=== PATIENT | female | born 1955 | race Caucasian/White ===

== ENCOUNTER → 2023-06-22 | Outpatient (CLI) | payer MEDICARE, OTHER, SELFPAY ==
[2023-06-22 15:28] LABS: Absolute Lymphocyte Count 1.61 X10^3/uL (0.83-4.51); Absolute Neutrophil Count 5.5 X10^3/uL (2.0-7.7); Basophil# 0.07 X10^3/uL; Basophil% 0.9 % (0-1); Eosinophil# 0.32 X10^3/uL; Hematocrit 24.2 % (37-47); Hemoglobin 6.8 g/dL (12.0-15.0); Lymphocyte # 1.61 X10^3/ul (0.83-4.51); Lymphocyte % 19.9 % (19-41); Mean Corp Hgb Conc 28.1 g/dL (32-36); Mean Corpuscular Hgb 27.5 pg (27.0-32.0); Mean Platelet Vol. 11.9 fl (6.2-12.0); Monocyte# 0.52 X10^3/uL; Monocyte% 6.4 % (0-10); NRBC Flagged by Analyzer 0 % (0-5); Neutrophil # 5.52 X10^3/uL (2.7-7.7); Neutrophil % 68.2 % (47-70); Platelet Count 218 K/mm3 (150-450); RBC Distribution Width CV 17.2 % (11.6-14.6); RBC Distribution Width SD 60.4 fl (35.1-43.9); Red Blood Count 2.47 M/mm3 (4.2-5.4); White Blood Count 8.1 K/mm3 (4.4-11.0)
[2023-06-22 16:00] LABS: Ferritin 84 ng/mL (8-252); Iron 29 ug/dL (50-170)
[2023-06-22 16:07] LABS: Vitamin B12 347 pg/mL (211-911); Vitamin D,25 Hydroxy 61.3 ng/mL
[2023-06-23 08:29] LABS: PTHIN 117.2 pg/mL (18.4-80.1)
== END | disposition home or self-care (01) ==
LOC: BFHLAB 13:10
PROVIDERS: PCP Family Medicine; Referring Provider Family Medicine; Visit Provider Family Medicine
DX: N18.4 Chronic kidney disease, stage 4 (severe) (principal); D63.1 Anemia in chronic kidney disease
CPT/HCPCS: 36415; 82306; 82607; 82728; 83540; 83970; 85025

== ENCOUNTER 2023-08-03 13:51 | Outpatient (CLI) | payer MEDICARE, OTHER, SELFPAY ==
[2023-08-03 14:13] VITALS: BP 139/76; PULSE 98; RESP 18; TEMP 36.6; O2SAT 98; BMI 51.6
[2023-08-03] MEDS: Sodium Ferric Gluconat/Sucrose 250 MG in 0.9% Normal Saline (250mL Bag) 250 ML 135 MG IV (14:38)
[2023-08-03] MEDS: 0.9% NaCl IVPB Med Flush (250 mL) 15 ML IV (14:38)
[2023-08-03] MEDS: 0.9% NaCl Peripheral Flush Adult/Peds IV (14:51)
[2023-08-03 16:36] VITALS: BP 137/65; PULSE 89; RESP 16; TEMP 36.4; O2SAT 100
== END 2023-08-03 13:52 | disposition home or self-care (01) ==
LOC: MEDOUTP 13:52
PROVIDERS: PCP Family Medicine; Referring Provider Family Medicine; Visit Provider Family Medicine
DX: D64.9 Anemia, unspecified (principal)
CPT/HCPCS: 96365; 96366; J7050; A4216; J2916

== ENCOUNTER 2023-08-17 12:39 | Outpatient (CLI) | payer MEDICARE, OTHER, SELFPAY ==
[2023-08-17 13:01] VITALS: BP 143/66; PULSE 92; RESP 18; TEMP 36.2; O2SAT 99
[2023-08-17] MEDS: 0.9% NaCl Peripheral Flush Adult/Peds IV (13:34)
[2023-08-17] MEDS: 0.9% NaCl IVPB Med Flush (250 mL) 15 ML IV (13:34)
[2023-08-17] MEDS: Sodium Ferric Gluconat/Sucrose 250 MG in 0.9% Normal Saline (250mL Bag) 250 ML 135 MG IV (13:43)
[2023-08-17 16:05] VITALS: BP 121/58; PULSE 90; RESP 16; TEMP 36.3; O2SAT 100
== END 2023-08-17 12:40 | disposition home or self-care (01) ==
LOC: MEDOUTP 12:40
PROVIDERS: PCP Family Medicine; Referring Provider Family Medicine; Visit Provider Family Medicine
DX: D64.9 Anemia, unspecified (principal)
CPT/HCPCS: 96365; 96366; J7050; A4216; J2916

== ENCOUNTER → 2023-09-22 | Outpatient (CLI) | payer MEDICARE, OTHER, SELFPAY ==
[2023-09-22 17:47] LABS: Absolute Lymphocyte Count 1.93 X10^3/uL (0.83-4.51); Absolute Neutrophil Count 7.3 X10^3/uL (2.0-7.7); Eosinophil# 0.21 X10^3/uL; Hematocrit 28.4 % (37-47); Lymphocyte # 1.93 X10^3/ul (0.83-4.51); Lymphocyte % 18.5 % (19-41); Mean Corp Hgb Conc 28.2 g/dL (32-36); Mean Corpuscular Hgb 26.1 pg (27.0-32.0); Mean Corpuscular Volume 92.5 fL (81-99); Mean Platelet Vol. 11.6 fl (6.2-12.0); Monocyte# 0.81 X10^3/uL; Monocyte% 7.7 % (0-10); NRBC Flagged by Analyzer 0 % (0-5); Neutrophil # 7.33 X10^3/uL (2.7-7.7); POSITIVE MORPHOLOGY YES; Platelet Count 230 K/mm3 (150-450); RBC Distribution Width CV 20.7 % (11.6-14.6); RBC Distribution Width SD 69.5 fl (35.1-43.9); Red Blood Count 3.07 M/mm3 (4.2-5.4); White Blood Count 10.5 K/mm3 (4.4-11.0)
[2023-09-22 17:50] LABS: Differential Indicated SCAN CRITERIA MET
[2023-09-22 18:03] LABS: Differential Comment SCANNED
[2023-09-22 18:15] LABS: Hemoglobin A1c 5.9 % (3.8-5.6)
[2023-09-22 18:32] LABS: ALB/GLOB Ratio 0.8 RATIO (0.9-2.4); AST(SGOT) 15 U/L (15-37); Alanine Aminotransfer ALT/SGPT 18 U/L (13-56); Albumin, Serum 3.1 g/dL (3.2-5.0); Alkaline Phosphatase 174 U/L (45-117); Anion Gap 1 (5-15); BUN 32 mg/dL (7-18); BUN/Creat Ratio 15.8 RATIO (10-20); Calcium,Total 9.2 mg/dL (8.5-10.1); Chloride 99 mmol/L (98-107); Cholesterol 196 mg/dL (200); Creatinine, Serum 2.02 mg/dL (0.55-1.02); EST Glomerular Filtration Rate 26 mL/min (>60); Est Glom Filt Rate - Afr Amer 32 mL/min (>60); Ferritin 14 ng/mL (8-252); Globulin 3.8 g/dL (2.2-4.2); Glucose 68 mg/dL (74-106); High Density Lipoprotein 50 mg/dL; Iron 20 ug/dL (50-170); Potassium 4.2 mmol/L (3.5-5.1); Protein, Total 6.9 g/dL (6.4-8.2); Sodium Level 138 mmol/L (136-145); Triglycerides 144 mg/dL; Very Low Density Lipoprotein 29 mg/dL (5-40)
[2023-09-22 18:39] LABS: Vitamin B12 376 pg/mL (211-911)
[2023-09-30 16:36] LABS: Microalbumin,Random Urine 70.8 mg/L (NO RANGE EST.); Microalbumin:Creatinine Ratio 77.1 mg/g CRE (<30 mg/g CRE)
== END | disposition home or self-care (01) ==
LOC: BFHLAB 15:11
PROVIDERS: PCP Family Medicine; Referring Provider Internal Medicine Endocrinology, Diabetes & Metabolism; Visit Provider Family Medicine
DX: E11.42 Type 2 diabetes mellitus with diabetic polyneuropathy (principal); E78.2 Mixed hyperlipidemia; D64.9 Anemia, unspecified
CPT/HCPCS: 36415; 80053; 80061; 82043; 82570; 82607; 82728; 83036; 83540; 85025

== ENCOUNTER 2024-05-21 14:15 | Outpatient (RCR) | payer MEDICARE, OTHER, SELFPAY ==
[2024-05-03 14:01] VITALS: BP 148/59; PULSE 91; RESP 18; TEMP 36.3; BMI 47.8
[2024-05-07 13:54] VITALS: BP 133/60; PULSE 97; RESP 16; TEMP 36.6; BMI 47.8
[2024-05-14 15:12] VITALS: BP 147/71; PULSE 88; RESP 20; TEMP 36.6; BMI 47.8
[2024-05-21 14:09] VITALS: BP 155/77; PULSE 155; RESP 15; TEMP 36.2; BMI 47.8
== END 2024-05-21 23:59 | disposition home or self-care (01) ==
LOC: WC 14:15
PROVIDERS: PCP Family Medicine; Referring Provider Family Medicine; Visit Provider Physician Assistant
DX: L89.154 Pressure ulcer of sacral region, stage 4 (principal); N18.4 Chronic kidney disease, stage 4 (severe); J96.10 Chronic respiratory failure, unspecified whether with hypoxia or hypercapnia; I50.22 Chronic systolic (congestive) heart failure; I13.0 Hypertensive heart and chronic kidney disease with heart failure and stage 1 through stage 4 chronic kidney disease, or unspecified chronic kidney disease; I42.9 Cardiomyopathy, unspecified; E66.01 Morbid (severe) obesity due to excess calories; Z68.42 Body mass index [BMI] 45.0-49.9, adult; Z79.4 Long term (current) use of insulin; E11.22 Type 2 diabetes mellitus with diabetic chronic kidney disease; E11.40 Type 2 diabetes mellitus with diabetic neuropathy, unspecified; E78.5 Hyperlipidemia, unspecified; G47.33 Obstructive sleep apnea (adult) (pediatric); Z79.51 Long term (current) use of inhaled steroids; Z79.82 Long term (current) use of aspirin; Z99.81 Dependence on supplemental oxygen; J45.909 Unspecified asthma, uncomplicated
CPT/HCPCS: 11043; 11044; 99214; G0463

== ENCOUNTER 2024-07-30 13:57 | Outpatient (RCR) | payer MEDICARE, OTHER, SELFPAY ==
[2024-05-22 00:33] VITALS: BP 155/77; PULSE 155; RESP 15; TEMP 36.2; BMI 47.8
--- NOTE | 2024-05-22 15:16 | WC ---
Called patient to let her know that Dr Johnson reviewed her lab work and was concerned about her albumin levels and would like a dietary consult to get her prepped for flap. I left her a voicemail regarding this and a referral will be sent.
--- NOTE | 2024-06-12 14:15 | WC ---
Spoke to patient today regarding the update on her health. She was recently hospitalized for COVID and other illnesses and now a resident at the [facility]. She isn't able to make her wound center appts right now due to cost of transportation. Asked if we could let the nurses know on her dressing care. Called the [facility] and obtained the fax number and faxed Scarlett the recent wound orders and progress note. Also sent a backline message to Dr Johnson letting him know that she will probably be in NH for another few weeks.
[2024-07-30 14:09] VITALS: BP 108/65; PULSE 88; RESP 20; TEMP 36.6; BMI 42.5
--- NOTE | 2024-07-30 17:15 | PCM.WC.PN ---
History of Present Illness Date of Service: 07/30/24 Chief Complaint: Sacral ulcer History of Wound: Mitra Palacios is a 68-year-old female who presents to the wound center today for evaluation and management of a sacral decubitus ulcer. She is accompanied to her appointment today by her who helps with wound care. She reports that this decubitus ulcer has been present to some degree for 12 years. She has been on IV antibiotics for infection of this wound in 2012. She reports a history of surgical debridement and intervention in 2016 after which it improved but still had a small opening. Then more recently she states the opening has enlarged again. She was recently seen at [facility] in [place] for UTI with sepsis and this ulcer was evaluated at that time as well. Per review of the available reports, it appears they did an MRI bone scan which suggested chronic sacral osteomyelitis. She was discharged with home health care through [facility] and they have been packing the wound with Dakin's soaked Nu Gauze and covering with a Mepilex dressing. However, often after home health leaves they will remove the packing as the patient reports it is painful to sit with the packing in place and also it seems to fall out onto the Mepilex anyway. They do report a significant amount of drainage from the wound, but denies any appearance of stool or significant foul odor. She does spend essentially all of her time sitting in either wheelchair or a recliner. She reports that she cannot stand for more than a minute at a time due to knee pain. Likewise, she is able to ambulate very short distances to the bathroom but otherwise reports this is extremely limited due to knee pain as well. She does have a cushion for her wheelchair and reportedly her recliner as well. She does have a hospital bed but does not use this that she says the mattress is too hard and uncomfortable so she sleeps in her recliner. She is overweight with a BMI of 47.8; however, she reports she has intentionally lost about 100 pounds over the last 3 years. She is an insulin-dependent diabetic. She reports since her discharge from hospital her sugars have been on the lower side, but is unsure of her most recent A1c. She does not smoke. Her medical history is otherwise significant aortic stenosis status post TAVR March 2024, cardiomyopathy with HFrEF, type 2 diabetes with associated neuropathy, chronic kidney disease stage IV, hypertension, hyperlipidemia, FAISAL, chronic respiratory failure (on supplemental O2 4 L via NC). She takes daily aspirin but no other blood thinners. Current encounter, 07 May 2024: Patient here today as a referral from Dr. Amato. She reports that during her recent hospitalization for her TAVR procedure, she had her wound opened up more (sacral wound). She believes that there is exposed bone at the base of the wound. No fevers chills. She has not had any recent labs. Of note she has been nonambulatory for several years secondary to knee and hip pain, as well as back surgery in 2008. She has 4 L of oxygen at home continuously for her restrictive airway disease (she reports from just asthma). Subjective Subjective 07 May 2024: Patient here today as a referral from Dr. Amato. She reports that during her recent hospitalization for her TAVR procedure, she had her wound opened up more (sacral wound). She believes that there is exposed bone at the base of the wound. No fevers chills. She has not had any recent labs. Of note she has been nonambulatory for several years secondary to knee and hip pain, as well as back surgery in 2008. She has 4 L of oxygen at home continuously for her restrictive airway disease (she reports from just asthma). 15 May 2020: Patient got her MRI on Tuesday, 11 May 2024. She brought the disc in with her today. It is being transported to the radiology team and they are going to upload. Per the read there is localized osteomyelitis in the wound base, does not at appear to be extending to the superior portions of the sacrum. 21 May 2024: I talked the patient extensively today about surgery. She would not like to do any sedation and would like to go to sleep as the wound is painful. No change in wound since last seen Current encounter, 30 Jul 2024: Still at SNF but here for wound check. She was admitted acutely for UTI and then went to the low intensity rehab. Had a left gluteal/upper back abscess and is now s/p drain placement and then PICC line based on cultures. Still has drain and is getting it exchanged with IR. Wound is smaller, and bone culture from recent was negative for orangisms. Objective Data Objective Data Vital Signs: Vital Signs Temp Pulse Resp BP O2 Flow Rate 97.8 F 88 20 H 108/65 4 07/30/24 14:09 07/30/24 14:09 07/30/24 14:09 07/30/24 14:09 05/22/24 00:33 Oxygen Flow Rate (L/min) 4 Weight: 240 lb 1.75 oz Body Mass Index (BMI) 42.5 Charges/Coding Procedures Integumentary 111xxx-113xx: 04842 Alycia musc/fascia 20 sq cm/< Physical Exam Narrative Sacral wound: Full-thickness sacral wound down fascia stage IV. NO BONE EXPOSED TODAY. There is fibrinous exudate within the wound and biofilm. Wound is 4 x 3 x 3 cm and tunnels minimally. Const oriented x3 General Appearance: cooperative Extremity Extremity Narrative: I examined her lower extremities She had 5 out of 5 plantarflexion and dorsiflexion, as well as 5 out of 5 knee extension and flexion. Debridement Note Debridement Note Wound debrided: Sacral wound Laterality: Not Applicable Type of Debridement: Excisional debridement Anesthesia Used: 4% Lidocaine Solution Depth: to muscle Percentage of wound debrided: 100 Instrument Used: 5mm curette Severity: Necrosis of Muscle Amount of bleeding with debridement: Moderate Bleeding Controlled with: Compression and gauze Patient tolerated procedure: Patient tolerated procedure well Post-Debridement Measurements and Additional Note: Post-Debridement Measurements/Treatment - Nurse 1 - General Ulcer Assessment Start: 07/30/24 14:09 Freq: Status: Active Protocol: .LOWEXT Activity Type Activity Date Activity User E-sign Co-sign Detail Recorded Client Recorded Date Recorded By Document 07/30/24 14:09 [facility] [id number] 07/30/24 14:34 [facility] 07/30/24 14:09 - Today's Visit Information Type of service Initial Visit Arrival Mode Ambulatory, Walker, Wheelchair Transfer Assist (Other) 2 Patient Identification Verified (Name & Yes ) Height and Weight Height 5 ft 3 in Weight 240 lb 1.75 oz Weight in Pounds 240.1 lbs Body Mass Index (BMI) 42.5 BMI Classification Obese BSA - Desire 2.09 Vital Signs Temperature (97.8 F-99.1 F) 97.8 F Temperature Source Temporal Pulse Rate (60-100) 88 Pulse Location Monitor Respiratory Rate (12-18) 20 H Respiratory rate source Observation Blood Pressure (90/60-120/80) 108/65 Blood Pressure Mean (mm Hg) 79 History Since Last Visit- (Skip if this is Patient's initial visit) Have you changed medications since your No last visit? Any new allergies or adverse reactions No Had a fall/change in ADL's that may No increase risk of falls Signs or symptoms of abuse and/or No neglect since last visit Have you been in the hospital since your Yes last visit? Has dressing in place as prescribed Yes Has compression in place as prescribed N/A Has offloadiing in place as prescribed Yes Experienced any changes in pain level or No management Pain Scale: 0-10 Numeric Is Patient Pain Free? Yes - Nurse 1 - General Ulcer Measurement Start: 07/30/24 14:09 Freq: Status: Active Protocol: Activity Type Activity Date Activity User E-sign Co-sign Detail Recorded Client Recorded Date Recorded By Document 07/30/24 14:09 [facility] [id number] 07/30/24 14:34 [facility] 07/30/24 14:09 Wound Center Nurse 1 #1 Sacral -Current Size (cm) - Length 5 -Current Size (cm) - Width 4.8 -Current Size (cm) - Depth 3.8 -Total Square Cm 24.0 -Photo Taken Yes -Exudate Amt Medium -Exudate Type Serosanguineous -Wound Margin Distinct, Outline Attached -Granulation Amt Medium (34-66%) -Granulation Quality [place],Red -Necrosis Amt Medium (34-66%) -Necrotic Tissue Type Adherent Slough -Structure Exposed N/A -Texture (Connie-wound Skin Appearance) Scarring -Moisture (Connie-wound Skin Appearance) No Abnormality -Color (Connie-wound Skin Appearance) No Abnormality -Temperature (Connie-wound Skin No Abnormality Appearance) (Pt Warm) -Ulcer Cleansing Soap and Water -Foul Odor after Cleansing No -Anesthetic Used 4% Lidocaine Solution - Nurse 2 - General Ulcer CM Notes Start: 07/30/24 14:09 Freq: Status: Active Protocol: Activity Type Activity Date Activity User E-sign Co-sign Detail Recorded Client Recorded Date Recorded By Document 07/30/24 15:11 PERLITA [id number] 07/30/24 15:15 07/30/24 15:11 Wound Center Nurse 2 -Time 15:14 -Correct Patient Yes -Correct Side, Site, Position Yes -Correct Procedure Yes -Procedure Performed Yes -Type of Procedure Debridement -Clinical Debridement Muscle / Fascia -Tissue Removed Muscle,Fascia -Post Debridement (cm) - Length 4 -Post Debridement (cm) - Width 3 -Post Debridement (cm) - Depth 3 -Total Square (Post) (cm) 12 -Area of Debridement (cm) - Length 4 -Area of Debridement (cm) - Width 3 -Total Square (Area) (cm) 12 -Tunneling No -Undermining/Tunneling No -Circular Undermining No -Wound/Ulcer Outcome Not Healed -Ulcer Cleansing Rinsed/ Irrigated with Saline -Foul Odor after Cleansing No -Bioengineered Tissue No -Bleeding Controlled with Pressure -Treatment Response Procedure Tolerated Well -Offloading No -Debridement - Muscle / Fascia, 1st Yes 20sq cm Pain Scale: 0-10 Numeric Is Patient Pain Free? Yes - Nurse 3 - General Ulcer D/C NN Start: 07/30/24 14:09 Freq: Status: Active Protocol: Activity Type Activity Date Activity User E-sign Co-sign Detail Recorded Client Recorded Date Recorded By Document 07/30/24 15:24 [id number] 07/30/24 15:24 07/30/24 15:24 Wound Care Center Nurse 3 #1 Sacral -Other Dressing dakins soaked gauze, the Laurals are to initiate a vac when available -Primary Dressing Covered/Secured with Dry Gauze, Secured with Tape Pain Scale: 0-10 Numeric Is Patient Pain Free? Yes - Visit Discharge Discharge Condition Stable Ambulatory Status Wheelchair Medication Reconcilliation completed & No provided to patient/care provider Clinical Summary of Care Provided Yes Assessment/Plan Assessment/Plan (1) Sacral decubitus ulcer, stage IV: CODE(S): L89.154 - Pressure ulcer of sacral region, stage 4 PLAN: Doing much better, no exposed bone. I think we need to start wound VAC therapy to get the wound to granulate in. Continue high protein diet and pressure offloading. F/u in 2 weeks to check progress.
--- NOTE | 2024-07-31 14:44 | WC ---
PHOTO 07/30/24 SACRAL
== END 2024-08-21 23:59 | disposition home or self-care (01) ==
LOC: WC 13:57
PROVIDERS: PCP Family Medicine; Referring Provider Family Medicine; Visit Provider Surgery Plastic and Reconstructive Surgery
DX: L89.154 Pressure ulcer of sacral region, stage 4 (principal); N18.4 Chronic kidney disease, stage 4 (severe); J96.10 Chronic respiratory failure, unspecified whether with hypoxia or hypercapnia; I13.0 Hypertensive heart and chronic kidney disease with heart failure and stage 1 through stage 4 chronic kidney disease, or unspecified chronic kidney disease; I50.22 Chronic systolic (congestive) heart failure; I42.9 Cardiomyopathy, unspecified; Z68.42 Body mass index [BMI] 45.0-49.9, adult; Z79.4 Long term (current) use of insulin; E11.40 Type 2 diabetes mellitus with diabetic neuropathy, unspecified; E11.22 Type 2 diabetes mellitus with diabetic chronic kidney disease; J98.4 Other disorders of lung; E78.5 Hyperlipidemia, unspecified; G47.33 Obstructive sleep apnea (adult) (pediatric); E66.3 Overweight; Z79.82 Long term (current) use of aspirin; Z79.899 Other long term (current) drug therapy; Z99.81 Dependence on supplemental oxygen
CPT/HCPCS: 11043; 99214; G0463

== ENCOUNTER 2024-09-17 14:00 | Outpatient (RCR) | payer MEDICARE, OTHER, SELFPAY ==
[2024-08-22 00:06] VITALS: BP 155/77; PULSE 155; RESP 15; TEMP 36.2; BMI 47.8
[2024-09-03 14:02] VITALS: BP 124/45; PULSE 129; RESP 16; BMI 47.8
--- NOTE | 2024-09-03 17:49 | PCM.WC.PN ---
History of Present Illness Date of Service: 09/03/24 Chief Complaint: Sacral ulcer History of Wound: Mitra Palacios is a 68-year-old female who presents to the wound center today for evaluation and management of a sacral decubitus ulcer. She is accompanied to her appointment today by her who helps with wound care. She reports that this decubitus ulcer has been present to some degree for 12 years. She has been on IV antibiotics for infection of this wound in 2012. She reports a history of surgical debridement and intervention in 2016 after which it improved but still had a small opening. Then more recently she states the opening has enlarged again. She was recently seen at [facility] in [place] for UTI with sepsis and this ulcer was evaluated at that time as well. Per review of the available reports, it appears they did an MRI bone scan which suggested chronic sacral osteomyelitis. She was discharged with home health care through [facility] and they have been packing the wound with Dakin's soaked Nu Gauze and covering with a Mepilex dressing. However, often after home health leaves they will remove the packing as the patient reports it is painful to sit with the packing in place and also it seems to fall out onto the Mepilex anyway. They do report a significant amount of drainage from the wound, but denies any appearance of stool or significant foul odor. She does spend essentially all of her time sitting in either wheelchair or a recliner. She reports that she cannot stand for more than a minute at a time due to knee pain. Likewise, she is able to ambulate very short distances to the bathroom but otherwise reports this is extremely limited due to knee pain as well. She does have a cushion for her wheelchair and reportedly her recliner as well. She does have a hospital bed but does not use this that she says the mattress is too hard and uncomfortable so she sleeps in her recliner. She is overweight with a BMI of 47.8; however, she reports she has intentionally lost about 100 pounds over the last 3 years. She is an insulin-dependent diabetic. She reports since her discharge from hospital her sugars have been on the lower side, but is unsure of her most recent A1c. She does not smoke. Her medical history is otherwise significant aortic stenosis status post TAVR March 2024, cardiomyopathy with HFrEF, type 2 diabetes with associated neuropathy, chronic kidney disease stage IV, hypertension, hyperlipidemia, FAISAL, chronic respiratory failure (on supplemental O2 4 L via NC). She takes daily aspirin but no other blood thinners. Subjective Subjective 07 May 2024: Patient here today as a referral from Dr. Amato. She reports that during her recent hospitalization for her TAVR procedure, she had her wound opened up more (sacral wound). She believes that there is exposed bone at the base of the wound. No fevers chills. She has not had any recent labs. Of note she has been nonambulatory for several years secondary to knee and hip pain, as well as back surgery in 2008. She has 4 L of oxygen at home continuously for her restrictive airway disease (she reports from just asthma). 15 May 2020: Patient got her MRI on Tuesday, 11 May 2024. She brought the disc in with her today. It is being transported to the radiology team and they are going to upload. Per the read there is localized osteomyelitis in the wound base, does not at appear to be extending to the superior portions of the sacrum. 21 May 2024: I talked the patient extensively today about surgery. She would not like to do any sedation and would like to go to sleep as the wound is painful. No change in wound since last seen 30 Jul 2024: Still at SNF but here for wound check. She was admitted acutely for UTI and then went to the low intensity rehab. Had a left gluteal/upper back abscess and is now s/p drain placement and then PICC line based on cultures. Still has drain and is getting it exchanged with IR. Wound is smaller, and bone culture from recent was negative for orangisms. Current encounter, 03 Sep 2024: Patient and report some issues with the VAC (losing suction and such). Discussed changing to wet to dry dressings as needed between VAC changes (good temporary solution until home health comes to replace). They were happy with this plan. Objective Data Objective Data Vital Signs: Vital Signs Temp Pulse Resp BP O2 Del Method O2 Flow Rate 97.2 F L 129 H 16 124/45 H Room Air 4 08/22/24 00:06 09/03/24 14:02 09/03/24 14:02 09/03/24 14:02 09/03/24 14:02 08/22/24 00:06 Oxygen Flow Rate (L/min) 4 Oxygen Delivery Method Room Air Weight: 270 lb Body Mass Index (BMI) 47.8 Charges/Coding Procedures Integumentary 111xxx-113xx: 84074 Alycia bone 20 sq cm/< Physical Exam Narrative Sacral wound: Full-thickness sacral wound down fascia stage IV. Small amount of bone exposed at the base of the wound. There is fibrinous exudate within the wound and biofilm. Wound is 4 x 5 and there is 4 cm depth and tunnels minimally. Const oriented x3 General Appearance: cooperative Extremity Extremity Narrative: I examined her lower extremities She had 5 out of 5 plantarflexion and dorsiflexion, as well as 5 out of 5 knee extension and flexion. Debridement Note Debridement Note Wound debrided: Sacral wound Laterality: Not Applicable Wound Grade/Stage: 4 Type of Debridement: Excisional debridement Anesthesia Used: 4% Lidocaine Solution Depth: to bone Percentage of wound debrided: 100 Instrument Used: 7mm curette Severity: Necrosis of Bone Amount of bleeding with debridement: Moderate Bleeding Controlled with: Compression and gauze Patient tolerated procedure: Patient tolerated procedure well Post-Debridement Measurements and Additional Note: Post-Debridement Measurements/Treatment WC - Nurse 1 - General Ulcer Assessment Start: 09/03/24 13:55 Freq: Status: Active Protocol: JIGAR Activity Type Activity Date Activity User E-sign Co-sign Detail Recorded Client Recorded Date Recorded By Document 09/03/24 14:02 ML [id number] 09/03/24 14:07 ML 09/03/24 14:02 Height and Weight Body Mass Index (BMI) 47.8 BMI Classification Obese Vital Signs Pulse Rate (60-100) 129 H Pulse Location Monitor Respiratory Rate (12-18) 16 Respiratory rate source Observation Oxygen Delivery Method Room Air Blood Pressure (90/60-120/80) 124/45 H Blood Pressure Mean (mm Hg) 71 Source Monitor Position Sitting Blood Pressure Location Right Forearm Pain Scale: 0-10 Numeric Is Patient Pain Free? Yes WC - Nurse 1 - General Ulcer Measurement Start: 09/03/24 13:55 Freq: Status: Active Protocol: Activity Type Activity Date Activity User E-sign Co-sign Detail Recorded Client Recorded Date Recorded By Document 09/03/24 14:02 ML [id number] 09/03/24 14:07 ML 09/03/24 14:02 Wound Center Nurse 1 LEFT BUTTOCK CLUSTER -Current Size (cm) - Length 2.8 -Current Size (cm) - Width 1.5 -Current Size (cm) - Depth 0.1 -Total Square Cm 4.20 -Exudate Amt Medium -Exudate Type Sanguineous -Wound Margin Distinct, Outline Attached -Granulation Amt Medium (34-66%) -Granulation Quality Red -Slough/Fibrin Yes -Necrosis Amt Small (1-33%) -Texture (Connie-wound Skin Appearance) Assessed -Moisture (Connie-wound Skin Appearance) Assessed -Color (Connie-wound Skin Appearance) Assessed -Temperature (Connie-wound Skin No Abnormality Appearance) (Pt Warm) -Tenderness on Palpation (Connie-wound No Skin Appearance) -Ulcer Cleansing Soap and Water -Foul Odor after Cleansing No -Anesthetic Used 4% Lidocaine Solution #1 Sacral -Current Size (cm) - Length 5.3 -Current Size (cm) - Width 4.9 -Current Size (cm) - Depth 4 -Total Square Cm 25.97 -Exudate Amt Medium -Exudate Type Sanguineous -Wound Margin Distinct, Outline Attached -Granulation Amt Medium (34-66%) -Slough/Fibrin Yes -Necrosis Amt Medium (34-66%) -Necrotic Tissue Type Adherent Slough -Texture (Connie-wound Skin Appearance) Assessed -Moisture (Connie-wound Skin Appearance) Assessed -Color (Connie-wound Skin Appearance) Assessed -Tenderness on Palpation (Connie-wound Yes Skin Appearance) -Ulcer Cleansing Soap and Water -Foul Odor after Cleansing No -Anesthetic Used 5% Lidocaine Gel WC - Nurse 2 - General Ulcer CM Notes Start: 09/03/24 13:55 Freq: Status: Active Protocol: Activity Type Activity Date Activity User E-sign Co-sign Detail Recorded Client Recorded Date Recorded By Document 09/03/24 14:15 PERLITA [id number] 09/03/24 14:22 PERLITA 09/03/24 14:15 Wound Center Nurse 2 LEFT BUTTOCK CLUSTER -Correct Patient Yes -Correct Side, Site, Position No -Correct Procedure No -Procedure Performed No -Wound/Ulcer Outcome Not Healed #1 Sacral -Time 14:15 -Correct Patient Yes -Correct Side, Site, Position Yes -Correct Procedure Yes -Procedure Performed Yes -Type of Procedure Debridement -Clinical Debridement Bone -Tissue Removed Non-viable tissue -Post Debridement (cm) - Length 4 -Post Debridement (cm) - Width 5 -Post Debridement (cm) - Depth 4 -Total Square (Post) (cm) 20 -Area of Debridement (cm) - Length 4 -Area of Debridement (cm) - Width 5 -Total Square (Area) (cm) 20 -Tunneling No -Undermining/Tunneling No -Circular Undermining No -Wound/Ulcer Outcome Not Healed -Ulcer Cleansing Rinsed/ Irrigated with Saline -Foul Odor after Cleansing No -Bioengineered Tissue No -Bleeding Controlled with Pressure -Treatment Response Procedure Tolerated Well -Offloading No -Pressure Reduction Wheelchair cushion -Debridement - Bone, 1st 20sq cm Yes Pain Scale: 0-10 Numeric Is Patient Pain Free? Yes - Nurse 3 - General Ulcer D/C NN Start: 09/03/24 13:55 Freq: Status: Active Protocol: Activity Type Activity Date Activity User E-sign Co-sign Detail Recorded Client Recorded Date Recorded By Document 09/03/24 14:56 [id number] 09/03/24 14:56 09/03/24 14:56 Wound Care Center Nurse 3 LEFT BUTTOCK CLUSTER -Other Dressing ATB OINTMENT -Primary Dressing Covered/Secured with Dry Gauze, Secured with Tape #1 Sacral -Other Dressing DAKINS WET TO DRY -Primary Dressing Covered/Secured with Dry Gauze, Secured with Tape Pain Scale: 0-10 Numeric Is Patient Pain Free? Yes - Visit Discharge Discharge Condition Stable Ambulatory Status Wheelchair Transportation Private Auto Accompanied by Medication Reconcilliation completed & No provided to patient/care provider Clinical Summary of Care Provided Yes Assessment/Plan Assessment/Plan (1) Sacral decubitus ulcer, stage IV: CODE(S): L89.154 - Pressure ulcer of sacral region, stage 4 PLAN: Small area of exposed bone. VAC helping wound granulate. Much marble cleaner than where we started. Continue to pursue pressure offloading mattress at home. Continue TIW vac changes. F/u in 2 weeks.
--- NOTE | 2024-09-04 09:48 | WC ---
PHOTO LEFT BUTTOCK CLUSTER 09/03/24
[2024-09-17 14:30] VITALS: BP 142/60; PULSE 100; RESP 20; TEMP 36.3; BMI 47.8
--- NOTE | 2024-09-18 07:43 | PN.PCM_ITS ---
History of Present Illness Date of Service: 09/17/24 Chief Complaint: Sacral ulcer History of Wound: Mitra Palacios is a 68-year-old female who presents to the wound center today for evaluation and management of a sacral decubitus ulcer. She is accompanied to her appointment today by her who helps with wound care. She reports that this decubitus ulcer has been present to some degree for 12 years. She has been on IV antibiotics for infection of this wound in 2012. She reports a history of surgical debridement and intervention in 2016 after which it improved but still had a small opening. Then more recently she states the opening has enlarged again. She was recently seen at [facility] in [place] for UTI with sepsis and this ulcer was evaluated at that time as well. Per review of the available reports, it appears they did an MRI bone scan which suggested chronic sacral osteomyelitis. She was discharged with home health care through [facility] and they have been packing the wound with Dakin's soaked Nu Gauze and covering with a Mepilex dressing. However, often after home health leaves they will remove the packing as the patient reports it is painful to sit with the packing in place and also it seems to fall out onto the Mepilex anyway. They do report a significant amount of drainage from the wound, but denies any appearance of stool or significant foul odor. She does spend essentially all of her time sitting in either wheelchair or a recliner. She reports that she cannot stand for more than a minute at a time due to knee pain. Likewise, she is able to ambulate very short distances to the bathroom but otherwise reports this is extremely limited due to knee pain as well. She does have a cushion for her wheelchair and reportedly her recliner as well. She does have a hospital bed but does not use this that she says the mattress is too hard and uncomfortable so she sleeps in her recliner. She is overweight with a BMI of 47.8; however, she reports she has intentionally lost about 100 pounds over the last 3 years. She is an insulin-dependent diabetic. She reports since her discharge from hospital her sugars have been on the lower side, but is unsure of her most recent A1c. She does not smoke. Her medical history is otherwise significant aortic stenosis status post TAVR March 2024, cardiomyopathy with HFrEF, type 2 diabetes with associated neuropathy, chronic kidney disease stage IV, hypertension, hyperlipidemia, FAISAL, chronic respiratory failure (on supplemental O2 4 L via NC). She takes daily aspirin but no other blood thinners. Subjective Subjective 07 May 2024: Patient here today as a referral from Dr. Amato. She reports that during her recent hospitalization for her TAVR procedure, she had her wound opened up more (sacral wound). She believes that there is exposed bone at the base of the wound. No fevers chills. She has not had any recent labs. Of note she has been nonambulatory for several years secondary to knee and hip pain, as well as back surgery in 2008. She has 4 L of oxygen at home continuously for her restrictive airway disease (she reports from just asthma). 15 May 2020: Patient got her MRI on Tuesday, 11 May 2024. She brought the disc in with her today. It is being transported to the radiology team and they are going to upload. Per the read there is localized osteomyelitis in the wound base, does not at appear to be extending to the superior portions of the sacrum. 21 May 2024: I talked the patient extensively today about surgery. She would not like to do any sedation and would like to go to sleep as the wound is painful. No change in wound since last seen 30 Jul 2024: Still at SNF but here for wound check. She was admitted acutely for UTI and then went to the low intensity rehab. Had a left gluteal/upper back abscess and is now s/p drain placement and then PICC line based on cultures. Still has drain and is getting it exchanged with IR. Wound is smaller, and bone culture from recent was negative for orangisms. 03 Sep 2024: Patient and report some issues with the VAC (losing suction and such). Discussed changing to wet to dry dressings as needed between VAC changes (good temporary solution until home health comes to replace). They were happy with this plan. Current encounter, 17 Sep 2024: Patient had recent issues with the wound VAC. Home health reported that there was some concern for infection underneath the VAC (drainage) so they recommended that she go to the emergency department. The emergency department physician from [facility] called me after the patient had been transported by squad on August. I asked the emergency room room physician to examine the wound by removing the wound VAC. He did so and was not concerned with infection. Wet-to-dry dressings were placed. He placed her on empiric antibiotics and discharged her. She is here for follow-up. No fevers or chills but increased pain in the location of the wound. Patient has a history of a right knee replacement with a periprosthetic fracture requiring complex reconstruction followed by subsequent left hip fracture in the mid to late . These 3 major surgeries and reconstructions debilitated her significantly and she has not walked in over 10 years. Objective Data Objective Data Vital Signs: Vital Signs Temp Pulse Resp BP O2 Del Method O2 Flow Rate 97.3 F L 100 20 H 142/60 H Room Air 4 09/17/24 14:30 09/17/24 14:30 09/17/24 14:30 09/17/24 14:30 09/03/24 14:02 08/22/24 00:06 Oxygen Flow Rate (L/min) 4 Oxygen Delivery Method Room Air Weight: 270 lb Body Mass Index (BMI) 47.8 Charges/Coding Procedures Integumentary 111xxx-113xx: 00026 Alycia bone 20 sq cm/< Add On Codes: 14635 Alycia bone add-on Physical Exam Narrative Sacral wound: Full-thickness sacral wound down fascia stage IV. Persistent small amount of exposed bone at the base of the wound. There is fibrinous exudate within the wound and biofilm. Wound is 6 x 5.5 and there is 5 cm depth and tunnels minimally. Some excoriation on the buttocks from dressings Const oriented x3 General Appearance: cooperative Extremity Extremity Narrative: I examined her lower extremities She had 5 out of 5 plantarflexion and dorsiflexion, as well as 5 out of 5 knee extension and flexion. Debridement Note Debridement Note Wound debrided: Sacral wound (central) Laterality: Not Applicable Wound Grade/Stage: Stage IV Type of Debridement: Excisional debridement Depth: to bone Percentage of wound debrided: 100 Instrument Used: 7mm curette Severity: Necrosis of Bone Amount of bleeding with debridement: Moderate Bleeding Controlled with: Pressure Patient tolerated procedure: Patient tolerated procedure well Post-Debridement Measurements and Additional Note: Post-Debridement Measurements/Treatment MICAH - Nurse 1 - General Ulcer Assessment Start: 09/03/24 13:55 Freq: Status: Active Protocol: LOWEXT Activity Type Activity Date Activity User E-sign Co-sign Detail Recorded Client Recorded Date Recorded By Document 09/03/24 14:02 ML [id number] 09/03/24 14:07 ML Document 09/17/24 14:30 DL [id number] 09/17/24 14:45 DL 09/03/24 09/17/24 14:02 14:30 - Today's Visit Information Type of service Follow-up Visit (Physician/BUSINESS RISK ANALYST ) Arrival Mode Wheelchair Transfer Assistance Manual Transfer Assist (Other) x2 Patient Identification Verified (Name & Yes ) Patient Requires Transmission-Based No Precautions Height and Weight Body Mass Index (BMI) 47.8 47.8 BMI Classification Obese Obese Vital Signs Temperature (97.8 F-99.1 F) 97.3 F L Temperature Source Temporal Pulse Rate (60-100) 129 H 100 Pulse Location Monitor Monitor Respiratory Rate (12-18) 16 20 H Respiratory rate source Observation Observation Oxygen Delivery Method Room Air Blood Pressure (90/60-120/80) 124/45 H 142/60 H Blood Pressure Mean (mm Hg) 71 87 Source Monitor Monitor Position Sitting Blood Pressure Location Right Forearm History Since Last Visit- (Skip if this is Patient's initial visit) Have you changed medications since your No last visit? Any new allergies or adverse reactions No Had a fall/change in ADL's that may No increase risk of falls Signs or symptoms of abuse and/or No neglect since last visit Have you been in the hospital since your No last visit? Has dressing in place as prescribed Yes Has compression in place as prescribed N/A Has offloadiing in place as prescribed N/A Experienced any changes in pain level or No management Pain Scale: 0-10 Numeric Is Patient Pain Free? Yes Yes - Nurse 1 - General Ulcer Measurement Start: 09/03/24 13:55 Freq: Status: Active Protocol: Activity Type Activity Date Activity User E-sign Co-sign Detail Recorded Client Recorded Date Recorded By Document 09/03/24 14:02 ML [id number] 09/03/24 14:07 ML Document 09/17/24 14:30 DL [id number] 09/17/24 14:45 DL 09/03/24 09/17/24 14:02 14:30 Wound Center Nurse 1 LEFT BUTTOCK CLUSTER -Current Size (cm) - Length 2.8 3.4 -Current Size (cm) - Width 1.5 3.8 -Current Size (cm) - Depth 0.1 0.1 -Total Square Cm 4.20 12.92 -Exudate Amt Medium Medium -Exudate Type Sanguineous Serosanguineous -Wound Margin Distinct, Distinct, Outline Outline Attached Attached -Granulation Amt Medium (34-66%) Large (67-100%) -Granulation Quality Red [place],Red -Slough/Fibrin Yes -Necrosis Amt Small (1-33%) None Present (0 %) -Structure Exposed N/A -Texture (Connie-wound Skin Appearance) Assessed Scarring -Moisture (Connie-wound Skin Appearance) Assessed Dry/Scaly -Color (Connie-wound Skin Appearance) Assessed No Abnormality -Temperature (Connie-wound Skin No Abnormality No Abnormality Appearance) (Pt Warm) (Pt Warm) -Tenderness on Palpation (Connie-wound No Skin Appearance) -Ulcer Cleansing Soap and Water Soap and Water -Foul Odor after Cleansing No No -Anesthetic Used 4% Lidocaine 5% Lidocaine Solution Gel #1 Sacral -Current Size (cm) - Length 5.3 5 -Current Size (cm) - Width 4.9 7 -Current Size (cm) - Depth 4 4 -Total Square Cm 25.97 35 -Undermining/Tunneling Starts (O'clock 1 ) -Undermining/Tunneling Ends (O'clock) 4 -Maximum Distance (cm) 3.4 -Exudate Amt Medium Medium -Exudate Type Sanguineous Serosanguineous -Wound Margin Distinct, Distinct, Outline Outline Attached Attached -Granulation Amt Medium (34-66%) Medium (34-66%) -Granulation Quality [place],Red -Slough/Fibrin Yes -Necrosis Amt Medium (34-66%) Small (1-33%) -Necrotic Tissue Type Adherent Slough Adherent Slough -Structure Exposed N/A -Texture (Connie-wound Skin Appearance) Assessed Scarring -Moisture (Connie-wound Skin Appearance) Assessed Dry/Scaly -Color (Connie-wound Skin Appearance) Assessed No Abnormality -Temperature (Connie-wound Skin No Abnormality Appearance) (Pt Warm) -Tenderness on Palpation (Connie-wound Yes Skin Appearance) -Ulcer Cleansing Soap and Water Soap and Water -Foul Odor after Cleansing No No -Anesthetic Used 5% Lidocaine 4% Lidocaine Gel Solution WC - Nurse 2 - General Ulcer CM Notes Start: 09/03/24 13:55 Freq: Status: Active Protocol: Activity Type Activity Date Activity User E-sign Co-sign Detail Recorded Client Recorded Date Recorded By Document 09/03/24 14:15 JF [id number] 09/03/24 14:22 JF Document 09/17/24 14:55 JF [id number] 09/17/24 15:07 JF 09/03/24 09/17/24 14:15 14:55 Wound Center Nurse 2 LEFT BUTTOCK CLUSTER -Correct Patient Yes No -Correct Side, Site, Position No No -Correct Procedure No No -Procedure Performed No No -Wound/Ulcer Outcome Not Healed Not Healed #1 Sacral -Time 14:15 14:55 -Correct Patient Yes No -Correct Side, Site, Position Yes No -Correct Procedure Yes No -Procedure Performed Yes No -Type of Procedure Debridement -Clinical Debridement Bone -Tissue Removed Non-viable tissue -Post Debridement (cm) - Length 4 5.5 -Post Debridement (cm) - Width 5 6.0 -Post Debridement (cm) - Depth 4 4.8 -Total Square (Post) (cm) 20 33.00 -Area of Debridement (cm) - Length 4 5.5 -Area of Debridement (cm) - Width 5 6.0 -Total Square (Area) (cm) 20 33.00 -Tunneling No No -Undermining/Tunneling No No -Circular Undermining No No -Wound/Ulcer Outcome Not Healed Not Healed -Ulcer Cleansing Rinsed/ Rinsed/ Irrigated with Irrigated with Saline Saline -Foul Odor after Cleansing No No -Bioengineered Tissue No No -Bleeding Controlled with Pressure Pressure -Treatment Response Procedure Procedure Tolerated Well Tolerated Well -Offloading No No -Pressure Reduction Wheelchair Wheelchair cushion cushion -Debridement - Bone, 1st 20sq cm Yes Yes Pain Scale: 0-10 Numeric Is Patient Pain Free? Yes Yes WC - Nurse 3 - General Ulcer D/C NN Start: 09/03/24 13:55 Freq: Status: Active Protocol: Activity Type Activity Date Activity User E-sign Co-sign Detail Recorded Client Recorded Date Recorded By Document 09/03/24 14:56 KW [id number] 09/03/24 14:56 KW Document 09/17/24 15:28 DL [id number] 09/17/24 15:30 DL 09/03/24 09/17/24 14:56 15:28 Wound Care Center Nurse 3 LEFT BUTTOCK CLUSTER -Ulcer Cleansing Soap and Water -Foul Odor after Cleansing No -Other Dressing ATB OINTMENT dakins -Primary Dressing Covered/Secured with Dry Gauze, Dry Gauze, Secured with Secured with Tape Tape #1 Sacral -Ulcer Cleansing Soap and Water -Foul Odor after Cleansing No -Primary Dressing Applied Hysept ($) -Other Dressing DAKINS WET TO DRY -Primary Dressing Covered/Secured with Dry Gauze, Dry Gauze, Secured with Secured with Tape Tape Connie-Wound Care Barrier Treatment Response Procedure Tolerated Well Pain Scale: 0-10 Numeric Is Patient Pain Free? Yes Yes WC - Visit Discharge Discharge Condition Stable Stable Ambulatory Status Wheelchair Walker, Wheelchair Transportation Private Auto Private Auto Accompanied by Medication Reconcilliation completed & No provided to patient/care provider Clinical Summary of Care Provided Yes Facility Type Home Health Orders Sent Yes Assessment/Plan Assessment/Plan (1) Sacral decubitus ulcer, stage IV: CODE(S): L89.154 - Pressure ulcer of sacral region, stage 4 PLAN: Persistent area of exposed bone. VAC helping wound granulate, but bone is colonized/chronically infected, likely not heal without OR debridement, antibiotics and flap closure. No indication for culture at this time as there is no acute infection and we are not closing the wound over the osteomyelitis, and this would subject the patient to 6 weeks of IV antibiotics without goal of actually curative treatment (Melo Tang, Clinical Infectious Diseases, Volume 68, Issue 2, 05 September 2018, Pages [phone],). I think the wound is not healing because of the infection of the bone at the base (the bone was not exposed for a while and then became exposed which is consistent with the diagnosis of chronic osteomyelitis). Continue to pursue pressure offloading mattress at home (but is yet to be delivered) Continue TIW vac changes once better tolerated, but we will use barrier cream to improve the skin in the periwound and do wet to moist dressings twice daily for now. Follow-up in 1 week I will discuss again with her primary care doctor and the anesthesia team appropriateness for general anesthesia as the patient declined any sedation-only procedures for debridement/reconstruction as she thinks it will hurt too much. We may not have the resources at [facility] to perform the debridement and reconstruction per anesthesia team, and therefore she may need referral to a tertiary center where they are willing to put her to sleep for the surgery. I will begin to coordinate this as this may have to be an option.
== END 2024-09-21 23:59 | disposition home or self-care (01) ==
LOC: WC 14:00
PROVIDERS: PCP Family Medicine; Referring Provider Family Medicine; Visit Provider Surgery Plastic and Reconstructive Surgery
DX: L89.154 Pressure ulcer of sacral region, stage 4 (principal); N18.4 Chronic kidney disease, stage 4 (severe); J96.10 Chronic respiratory failure, unspecified whether with hypoxia or hypercapnia; I50.22 Chronic systolic (congestive) heart failure; I13.0 Hypertensive heart and chronic kidney disease with heart failure and stage 1 through stage 4 chronic kidney disease, or unspecified chronic kidney disease; I42.9 Cardiomyopathy, unspecified; Z68.42 Body mass index [BMI] 45.0-49.9, adult; E11.22 Type 2 diabetes mellitus with diabetic chronic kidney disease; Z79.4 Long term (current) use of insulin; E11.40 Type 2 diabetes mellitus with diabetic neuropathy, unspecified; J98.4 Other disorders of lung; E78.5 Hyperlipidemia, unspecified; G47.33 Obstructive sleep apnea (adult) (pediatric); E66.3 Overweight; Z99.81 Dependence on supplemental oxygen; Z79.82 Long term (current) use of aspirin; Z79.899 Other long term (current) drug therapy; Z96.651 Presence of right artificial knee joint
CPT/HCPCS: 11044; 99214; G0463

== ENCOUNTER 2024-09-24 14:36 | Outpatient (RCR) | payer MEDICARE, OTHER, SELFPAY ==
[2024-09-22 00:27] VITALS: BP 142/60; PULSE 100; RESP 20; TEMP 36.3; BMI 47.8
[2024-09-24 13:54] VITALS: BP 134/93; PULSE 90; RESP 18; TEMP 36.3; BMI 47.8
--- NOTE | 2024-09-25 07:43 | PN.PCM_ITS ---
History of Present Illness Date of Service: 09/24/24 Chief Complaint: Sacral ulcer History of Wound: Mitra Palacios is a 68-year-old female who presents to the wound center today for evaluation and management of a sacral decubitus ulcer. She is accompanied to her appointment today by her who helps with wound care. She reports that this decubitus ulcer has been present to some degree for 12 years. She has been on IV antibiotics for infection of this wound in 2012. She reports a history of surgical debridement and intervention in 2016 after which it improved but still had a small opening. Then more recently she states the opening has enlarged again. She was recently seen at [facility] in [place] for UTI with sepsis and this ulcer was evaluated at that time as well. Per review of the available reports, it appears they did an MRI bone scan which suggested chronic sacral osteomyelitis. She was discharged with home health care through [facility] and they have been packing the wound with Dakin's soaked Nu Gauze and covering with a Mepilex dressing. However, often after home health leaves they will remove the packing as the patient reports it is painful to sit with the packing in place and also it seems to fall out onto the Mepilex anyway. They do report a significant amount of drainage from the wound, but denies any appearance of stool or significant foul odor. She does spend essentially all of her time sitting in either wheelchair or a recliner. She reports that she cannot stand for more than a minute at a time due to knee pain. Likewise, she is able to ambulate very short distances to the bathroom but otherwise reports this is extremely limited due to knee pain as well. She does have a cushion for her wheelchair and reportedly her recliner as well. She does have a hospital bed but does not use this that she says the mattress is too hard and uncomfortable so she sleeps in her recliner. She is overweight with a BMI of 47.8; however, she reports she has intentionally lost about 100 pounds over the last 3 years. She is an insulin-dependent diabetic. She reports since her discharge from hospital her sugars have been on the lower side, but is unsure of her most recent A1c. She does not smoke. Her medical history is otherwise significant aortic stenosis status post TAVR March 2024, cardiomyopathy with HFrEF, type 2 diabetes with associated neuropathy, chronic kidney disease stage IV, hypertension, hyperlipidemia, FAISAL, chronic respiratory failure (on supplemental O2 4 L via NC). She takes daily aspirin but no other blood thinners. Subjective Subjective 07 May 2024: Patient here today as a referral from Dr. Amato. She reports that during her recent hospitalization for her TAVR procedure, she had her wound opened up more (sacral wound). She believes that there is exposed bone at the base of the wound. No fevers chills. She has not had any recent labs. Of note she has been nonambulatory for several years secondary to knee and hip pain, as well as back surgery in 2008. She has 4 L of oxygen at home continuously for her restrictive airway disease (she reports from just asthma). 15 May 2020: Patient got her MRI on Tuesday, 11 May 2024. She brought the disc in with her today. It is being transported to the radiology team and they are going to upload. Per the read there is localized osteomyel itis in the wound base, does not at appear to be extending to the superior portions of the sacrum. 21 May 2024: I talked the patient extensively today about surgery. She would not like to do any sedation and would like to go to sleep as the wound is painful. No change in wound since last seen 30 Jul 2024: Still at SNF but here for wound check. She was admitted acutely for UTI and then went to the low intensity rehab. Had a left gluteal/upper back abscess and is now s/p drain placement and then PICC line based on cultures. Still has drain and is getting it exchanged with IR. Wound is smaller, and bone culture from recent was negative for orangisms. 03 Sep 2024: Patient and report some issues with the VAC (losing suction and such). Discussed changing to wet to dry dressings as needed between VAC changes (good temporary solution until home health comes to replace). They were happy with this plan. 17 Sep 2024: Patient had recent issues with the wound VAC. Home health reported that there was some concern for infection underneath the VAC (drainage) so they recommended that she go to the emergency department. The emergency department physician from [facility] called me after the patient had been transported by squad on August. I asked the emergency room room physician to examine the wound by removing the wound VAC. He did so and was not concerned with infection. Wet-to-dry dressings were placed. He placed her on empiric antibiotics and discharged her. She is here for follow-up. No fevers or chills but increased pain in the location of the wound. Patient has a history of a right knee replacement with a periprosthetic fracture requiring complex reconstruction followed by subsequent left hip fracture in the mid to late . These 3 major surgeries and reconstructions debilitated her significantly and she has not walked in over 10 years. Current encounter, 25 Sep 2024: Patient doing well today overall. Saw the chronic pain physician Dr. Menjivar this past week after we referred her. She thought this was very helpful. She has been doing well with her with the wet-to-dry dressings and are happy that they are no longer doing the VAC as this was cumbersome and leaks a lot. They are working to get the pressure offloading bed at home as they have had struggles with delivery, but reportedly the wound bed is on its way (was backordered). I spoke with her primary care physician Dr. Aaron Amato about surgical clearance for an OR debridement and possible flap closure. He believes that her heart has been optimized with the recent surgeries but would recommend clearance from the band sawmill operator as well. The patient is lost 50 pounds in the past 6 months and is no longer requiring home oxygen, which is a significant improvement. Objective Data Objective Data Vital Signs: Vital Signs Temp Pulse Resp BP O2 Del Method O2 Flow Rate 97.4 F L 90 18 134/93 H Room Air 4 09/24/24 13:54 09/24/24 13:54 09/24/24 13:54 09/24/24 13:54 09/24/24 13:54 09/22/24 00:27 Oxygen Flow Rate (L/min) 4 Oxygen Delivery Method Room Air Weight: 270 lb Body Mass Index (BMI) 47.8 Charges/Coding Procedures Integumentary 111xxx-113xx: 19381 Alycia bone 20 sq cm/< Add On Codes: 17582 Alycia bone add-on Physical Exam Narrative Sacral wound: Full-thickness sacral wound down fascia stage IV. Persistent small amount of exposed bone at the base of the wound. There is fibrinous exudate within the wound and biofilm. Wound is 4 x 5.5 and there is 5 cm depth and tunnels minimally. The periwound is much healthier now that the VAC has been discontinued. The skin appears less irritated. Const oriented x3 General Appearance: cooperative Extremity Extremity Narrative: I examined her lower extremities She had 5 out of 5 plantarflexion and dorsiflexion, as well as 5 out of 5 knee extension and flexion. Debridement Note Debridement Note Wound debrided: Sacral wound Laterality: Not Applicable Wound Grade/Stage: 4 Type of Debridement: Excisional debridement Anesthesia Used: 4% Lidocaine Solution Depth: to bone Percentage of wound debrided: 100 Instrument Used: 7mm curette Severity: Necrosis of Bone Amount of bleeding with debridement: Moderate Bleeding Controlled with: Compression and gauze Patient tolerated procedure: Patient tolerated procedure well Post-Debridement Measurements and Additional Note: Post-Debridement Measurements/Treatment - Nurse 1 - General Ulcer Assessment Start: 09/24/24 13:54 Freq: Status: Active Protocol: [email or web address] Activity Type Activity Date Activity User E-sign Co-sign Detail Recorded Client Recorded Date Recorded By Document 09/24/24 13:54 [id number] 09/24/24 14:10 KW 09/24/24 13:54 - Today's Visit Information Type of service Follow-up Visit (Physician/WASTE TRANSPORTATION TECHNICIAN ) Arrival Mode Wheelchair Accompanied by Patient Identification Verified (Name & Yes ) Height and Weight Body Mass Index (BMI) 47.8 BMI Classification Obese Vital Signs Temperature (97.8 F-99.1 F) 97.4 F L Temperature Source Temporal Pulse Rate (60-100) 90 Pulse Location Monitor Respiratory Rate (12-18) 18 Respiratory rate source Observation Oxygen Delivery Method Room Air Blood Pressure (90/60-120/80) 134/93 H Blood Pressure Mean (mm Hg) 106 Source Monitor Position Semi-Fowlers Blood Pressure Location Left Arm History Since Last Visit- (Skip if this is Patient's initial visit) Have you changed medications since your No last visit? Any new allergies or adverse reactions No Had a fall/change in ADL's that may No increase risk of falls Signs or symptoms of abuse and/or No neglect since last visit Have you been in the hospital since your No last visit? Has dressing in place as prescribed Yes Has compression in place as prescribed N/A Has offloadiing in place as prescribed N/A Experienced any changes in pain level or No management Left Footwear Regular Shoe Right Footwear Regular Shoe Pain Scale: 0-10 Numeric Is Patient Pain Free? Yes WC - Nurse 1 - General Ulcer Measurement Start: 09/24/24 13:54 Freq: Status: Active Protocol: Activity Type Activity Date Activity User E-sign Co-sign Detail Recorded Client Recorded Date Recorded By Document 09/24/24 13:54 [id number] 09/24/24 14:10 09/24/24 13:54 Wound Center Nurse 1 LEFT BUTTOCK CLUSTER -Current Size (cm) - Length 3.5 -Current Size (cm) - Width 2 -Current Size (cm) - Depth 0.2 -Total Square Cm 7.0 -Exudate Amt Small -Exudate Type Serosanguineous -Wound Margin Distinct, Outline Attached -Granulation Amt Large (67-100%) -Granulation Quality Red -Texture (Connie-wound Skin Appearance) Assessed -Moisture (Connie-wound Skin Appearance) Assessed -Color (Connie-wound Skin Appearance) Assessed -Temperature (Connie-wound Skin No Abnormality Appearance) (Pt Warm) -Tenderness on Palpation (Connie-wound No Skin Appearance) -Ulcer Cleansing Rinsed/ Irrigated with Saline -Anesthetic Used 5% Lidocaine Gel #1 Sacral -Current Size (cm) - Length 3 -Current Size (cm) - Width 4 -Current Size (cm) - Depth 6.1 -Total Square Cm 12 -Exudate Amt Small -Exudate Type Serosanguineous -Wound Margin Distinct, Outline Attached -Granulation Amt Large (67-100%) -Granulation Quality [place],Red -Texture (Connie-wound Skin Appearance) Assessed -Moisture (Connie-wound Skin Appearance) Assessed -Color (Connie-wound Skin Appearance) Assessed -Temperature (Connie-wound Skin No Abnormality Appearance) (Pt Warm) -Tenderness on Palpation (Connie-wound No Skin Appearance) -Ulcer Cleansing Rinsed/ Irrigated with Saline -Foul Odor after Cleansing No -Anesthetic Used 5% Lidocaine Gel WC - Nurse 2 - General Ulcer CM Notes Start: 09/24/24 13:54 Freq: Status: Active Protocol: Activity Type Activity Date Activity User E-sign Co-sign Detail Recorded Client Recorded Date Recorded By Document 09/24/24 14:25 JF [id number] 09/24/24 14:28 PERLITA 09/24/24 14:25 Wound Center Nurse 2 LEFT BUTTOCK CLUSTER -Time 14:25 -Correct Patient No -Correct Side, Site, Position No -Correct Procedure No -Procedure Performed No -Tunneling No -Undermining/Tunneling No -Circular Undermining No -Wound/Ulcer Outcome Not Healed -Ulcer Cleansing Rinsed/ Irrigated with Saline -Foul Odor after Cleansing No -Bioengineered Tissue No -Bleeding Controlled with Pressure -Treatment Response Procedure Tolerated Well -Offloading No -Pressure Reduction Wheelchair cushion #1 Sacral -Time 14:27 -Correct Patient Yes -Correct Side, Site, Position Yes -Correct Procedure Yes -Procedure Performed Yes -Type of Procedure Debridement -Clinical Debridement Bone -Tissue Removed Non-viable tissue -Post Debridement (cm) - Length 4 -Post Debridement (cm) - Width 5.5 -Post Debridement (cm) - Depth 3.0 -Total Square (Post) (cm) 22.0 -Area of Debridement (cm) - Length 4 -Area of Debridement (cm) - Width 5.5 -Total Square (Area) (cm) 22.0 -Tunneling No -Undermining/Tunneling No -Circular Undermining No -Wound/Ulcer Outcome Not Healed -Ulcer Cleansing Rinsed/ Irrigated with Saline -Foul Odor after Cleansing No -Bioengineered Tissue No -Bleeding Controlled with Pressure -Treatment Response Procedure Tolerated Well -Offloading No -Pressure Reduction Wheelchair cushion -Debridement - Bone, 1st 20sq cm Yes -Debridement, Bone, ea addt'l 20sq cm 1 or part thereof Pain Scale: 0-10 Numeric Is Patient Pain Free? Yes WC - Nurse 3 - General Ulcer D/C NN Start: 09/24/24 13:54 Freq: Status: Active Protocol: Activity Type Activity Date Activity User E-sign Co-sign Detail Recorded Client Recorded Date Recorded By Document 09/24/24 14:38 DL [id number] 09/24/24 14:41 DL 09/24/24 14:38 Wound Care Center Nurse 3 LEFT BUTTOCK CLUSTER -Ulcer Cleansing Soap and Water -Foul Odor after Cleansing No -Other Dressing dakins -Primary Dressing Covered/Secured with Dry Gauze & Roll Gauze, Secured with Tape -Other Covering ABD #1 Sacral -Ulcer Cleansing Soap and Water -Foul Odor after Cleansing No -Other Dressing dakins -Primary Dressing Covered/Secured with Dry Gauze & Roll Gauze, Secured with Tape -Other Covering ABD -Wound Comment(s) Dressing applied by [place] today. Treatment Response Procedure Tolerated Well Pain Scale: 0-10 Numeric Is Patient Pain Free? Yes WC - Visit Discharge Discharge Condition Stable Ambulatory Status Walker, Wheelchair Transportation Private Auto Facility Type Home Health Orders Sent Yes Assessment/Plan Assessment/Plan (1) Sacral decubitus ulcer, stage IV: CODE(S): L89.154 - Pressure ulcer of sacral region, stage 4 PLAN: Plan from 17 September 2024: persistent area of exposed bone. VAC helping wound granulate, but bone is colonized/chronically infected, likely not heal without OR debridement, antibiotics and flap closure. No indication for culture at this time as there is no acute infection and we are not closing the wound over the osteomyelitis, and this would subject the patient to 6 weeks of IV antibiotics without goal of actually curative treatment (Melo Tang, Clinical Infectious Diseases, Volume 68, Issue 2, 05 September 2018, Pages [phone],). I think the wound is not healing because of the infection of the bone at the base (the bone was not exposed for a while and then became exposed which is consistent with the diagnosis of chronic osteomyelitis). Continue to pursue pressure offloading mattress at home (but is yet to be delivered) Continue TIW vac changes once better tolerated, but we will use barrier cream to improve the skin in the periwound and do wet to moist dressings twice daily for now. Follow-up in 1 week I will discuss again with her primary care doctor and the anesthesia team appropriateness for general anesthesia as the patient declined any sedation-only procedures for debridement/reconstruction as she thinks it will hurt too much. We may not have the resources at [facility] to perform the debridement and reconstruction per anesthesia team, and therefore she may need referral to a tertiary center where they are willing to put her to sleep for the surgery. I will begin to coordinate this as this may have to be an option. Plan from 25 September 2024: Continue twice daily wet-to-dry dressings with the Dakin's. Continue with the acute pain physician. Continue with plan to get the pressure offloading bed. Will consider nutrition labs and nutrition consult at the next visit to check status. Follow-up with band sawmill operator and with anesthesia at [facility] to check for appropriateness of debridement/closure here versus at a tertiary center.
== END 2024-10-19 23:59 | disposition home or self-care (01) ==
LOC: WC 14:36
PROVIDERS: PCP Family Medicine; Referring Provider Family Medicine; Visit Provider Surgery Plastic and Reconstructive Surgery
DX: L89.154 Pressure ulcer of sacral region, stage 4 (principal); N18.4 Chronic kidney disease, stage 4 (severe); J96.10 Chronic respiratory failure, unspecified whether with hypoxia or hypercapnia; I13.0 Hypertensive heart and chronic kidney disease with heart failure and stage 1 through stage 4 chronic kidney disease, or unspecified chronic kidney disease; I50.22 Chronic systolic (congestive) heart failure; I42.9 Cardiomyopathy, unspecified; Z68.42 Body mass index [BMI] 45.0-49.9, adult; Z79.4 Long term (current) use of insulin; E11.22 Type 2 diabetes mellitus with diabetic chronic kidney disease; E11.40 Type 2 diabetes mellitus with diabetic neuropathy, unspecified; J98.4 Other disorders of lung; G47.33 Obstructive sleep apnea (adult) (pediatric); E78.5 Hyperlipidemia, unspecified; E66.3 Overweight; Z99.81 Dependence on supplemental oxygen; Z79.82 Long term (current) use of aspirin; Z79.899 Other long term (current) drug therapy; Z87.39 Personal history of other diseases of the musculoskeletal system and connective tissue
CPT/HCPCS: 11044; 11047

== ENCOUNTER 2024-10-22 13:38 | Outpatient (RCR) | payer MEDICARE, OTHER, SELFPAY ==
[2024-10-20 01:46] VITALS: BP 134/93; PULSE 90; RESP 18; TEMP 36.3; BMI 47.8
[2024-10-22 13:50] VITALS: BP 123/70; PULSE 95; RESP 18; TEMP 36.4; BMI 47.8
[2024-10-22 18:04] LABS: Absolute Lymphocyte Count 1.98 X10^3/uL (0.83-4.51); Absolute Neutrophil Count 9.1 X10^3/uL (2.0-7.7); Basophil% 0.8 % (0-1); Eosinophil# 0.19 X10^3/uL; Eosinophils% 1.6 % (0-5); Hematocrit 35.7 % (37-47); Lymphocyte # 1.98 X10^3/ul (0.83-4.51); Lymphocyte % 16.2 % (19-41); Mean Corp Hgb Conc 30.8 g/dL (32-36); Mean Corpuscular Hgb 27.8 pg (27.0-32.0); Mean Corpuscular Volume 90.4 fL (81-99); Monocyte# 0.85 X10^3/uL; Monocyte% 6.9 % (0-10); NRBC Flagged by Analyzer 0 % (0-5); Neutrophil # 9.06 X10^3/uL (2.7-7.7); Platelet Count 169 K/mm3 (150-450); RBC Distribution Width SD 52.1 fl (35.1-43.9); Red Blood Count 3.95 M/mm3 (4.2-5.4); White Blood Count 12.2 K/mm3 (4.4-11.0)
--- NOTE | 2024-10-22 18:20 | PCM.WC.PN ---
History of Present Illness Date of Service: 10/22/24 Chief Complaint: Sacral ulcer History of Wound: Mitra Palacios is a 68-year-old female who presents to the wound center today for evaluation and management of a sacral decubitus ulcer. She is accompanied to her appointment today by her who helps with wound care. She reports that this decubitus ulcer has been present to some degree for 12 years. She has been on IV antibiotics for infection of this wound in 2012. She reports a history of surgical debridement and intervention in 2016 after which it improved but still had a small opening. Then more recently she states the opening has enlarged again. She was recently seen at [facility] in [place] for UTI with sepsis and this ulcer was evaluated at that time as well. Per review of the available reports, it appears they did an MRI bone scan which suggested chronic sacral osteomyelitis. She was discharged with home health care through [facility] and they have been packing the wound with Dakin's soaked Nu Gauze and covering with a Mepilex dressing. However, often after home health leaves they will remove the packing as the patient reports it is painful to sit with the packing in place and also it seems to fall out onto the Mepilex anyway. They do report a significant amount of drainage from the wound, but denies any appearance of stool or significant foul odor. She does spend essentially all of her time sitting in either wheelchair or a recliner. She reports that she cannot stand for more than a minute at a time due to knee pain. Likewise, she is able to ambulate very short distances to the bathroom but otherwise reports this is extremely limited due to knee pain as well. She does have a cushion for her wheelchair and reportedly her recliner as well. She does have a hospital bed but does not use this that she says the mattress is too hard and uncomfortable so she sleeps in her recliner. She is overweight with a BMI of 47.8; however, she reports she has intentionally lost about 100 pounds over the last 3 years. She is an insulin-dependent diabetic. She reports since her discharge from hospital her sugars have been on the lower side, but is unsure of her most recent A1c. She does not smoke. Her medical history is otherwise significant aortic stenosis status post TAVR March 2024, cardiomyopathy with HFrEF, type 2 diabetes with associated neuropathy, chronic kidney disease stage IV, hypertension, hyperlipidemia, FAISAL, chronic respiratory failure (on supplemental O2 4 L via NC). She takes daily aspirin but no other blood thinners. Subjective Subjective 07 May 2024: Patient here today as a referral from Dr. Amato. She reports that during her recent hospitalization for her TAVR procedure, she had her wound opened up more (sacral wound). She believes that there is exposed bone at the base of the wound. No fevers chills. She has not had any recent labs. Of note she has been nonambulatory for several years secondary to knee and hip pain, as well as back surgery in 2008. She has 4 L of oxygen at home continuously for her restrictive airway disease (she reports from just asthma). 15 May 2020: Patient got her MRI on Tuesday, 11 May 2024. She brought the disc in with her today. It is being transported to the radiology team and they are going to upload. Per the read there is localized osteomyelitis in the wound base, does not at appear to be extending to the superior portions of the sacrum. 21 May 2024: I talked the patient extensively today about surgery. She would not like to do any sedation and would like to go to sleep as the wound is painful. No change in wound since last seen 30 Jul 2024: Still at SNF but here for wound check. She was admitted acutely for UTI and then went to the low intensity rehab. Had a left gluteal/upper back abscess and is now s/p drain placement and then PICC line based on cultures. Still has drain and is getting it exchanged with IR. Wound is smaller, and bone culture from recent was negative for orangisms. 03 Sep 2024: Patient and report some issues with the VAC (losing suction and such). Discussed changing to wet to dry dressings as needed between VAC changes (good temporary solution until home health comes to replace). They were happy with this plan. 17 Sep 2024: Patient had recent issues with the wound VAC. Home health reported that there was some concern for infection underneath the VAC (drainage) so they recommended that she go to the emergency department. The emergency department physician from [place] called me after the patient had been transported by squad on August. I asked the emergency room room physician to examine the wound by removing the wound VAC. He did so and was not concerned with infection. Wet-to-dry dressings were placed. He placed her on empiric antibiotics and discharged her. She is here for follow-up. No fevers or chills but increased pain in the location of the wound. Patient has a history of a right knee replacement with a periprosthetic fracture requiring complex reconstruction followed by subsequent left hip fracture in the mid to late . These 3 major surgeries and reconstructions debilitated her significantly and she has not walked in over 10 years. 25 Sep 2024: Patient doing well today overall. Saw the chronic pain physician Dr. Menjivar this past week after we referred her. She thought this was very helpful. She has been doing well with her with the wet-to-dry dressings and are happy that they are no longer doing the VAC as this was cumbersome and leaks a lot. They are working to get the pressure offloading bed at home as they have had struggles with delivery, but reportedly the wound bed is on its way (was backordered). I spoke with her primary care physician Dr. Aaron Amato about surgical clearance for an OR debridement and possible flap closure. He believes that her heart has been optimized with the recent surgeries but would recommend clearance from the formal wear rental clerk as well. The patient is lost 50 pounds in the past 6 months and is no longer requiring home oxygen, which is a significant improvement. Current encounter, 22 October 2024: Doing well overall with wound care. No recent admissions. Down another 15 lbs! Objective Data Objective Data Vital Signs: Vital Signs Temp Pulse Resp BP O2 Del Method O2 Flow Rate 97.6 F L 95 18 123/70 H Room Air 4 10/22/24 13:50 10/22/24 13:50 10/22/24 13:50 10/22/24 13:50 10/22/24 13:50 10/20/24 01:46 Oxygen Flow Rate (L/min) 4 Oxygen Delivery Method Room Air Weight: 270 lb Body Mass Index (BMI) 47.8 Lab / Micro Data 10/22/24 15:56 10/22/24 15:56 Labs: Laboratory Results - last 24 hr 10/22/24 15:56: WBC 12.2 H, RBC 3.95 L, Hgb 11.0 L, Hct 35.7 L, MCV 90.4, MCH 27.8, MCHC 30.8 L, RDW Std Deviation 52.1 H, RDW Coeff of Bridget 16.0 H, Plt Count 169, MPV TNP, Immature Gran % (Auto) 0.500, Neut % (Auto) 74.0 H, Lymph % (Auto) 16.2 L, Cole % (Auto) 6.9, Eos % (Auto) 1.6, Baso % (Auto) 0.8, Absolute Neuts (auto) 9.1 H, Absolute Lymphs (auto) 1.98, Nucleated RBC % 0 Charges/Coding Procedures Integumentary [id number]: [id number] Alycia musc/fascia 20 sq cm/< Physical Exam Narrative Sacral wound: Full-thickness sacral wound down fascia stage III. No exposed bone at the base today (has granulated). There is fibrinous exudate within the wound and biofilm. Wound is 4 x 3 and there is 3 cm depth and tunnels minimally. The periwound is much healthier now that the VAC has been discontinued. The skin appears less irritated. Const oriented x3 General Appearance: cooperative Extremity Extremity Narrative: I examined her lower extremities She had 5 out of 5 plantarflexion and dorsiflexion, as well as 5 out of 5 knee extension and flexion. Debridement Note Debridement Note Wound debrided: Sacral wound Laterality: Not Applicable Wound Grade/Stage: 3 Type of Debridement: Excisional debridement Anesthesia Used: 4% Lidocaine Solution Depth: to muscle Percentage of wound debrided: 100 Instrument Used: 7mm curette Severity: Necrosis of Muscle Amount of bleeding with debridement: Mild Bleeding Controlled with: Compression and gauze Patient tolerated procedure: Patient tolerated procedure well Post-Debridement Measurements and Additional Note: Post-Debridement Measurements/Treatment - Nurse 1 - General Ulcer Assessment Start: 10/22/24 13:50 Freq: Status: Active Protocol: .LOWEXT Activity Type Activity Date Activity User E-sign Co-sign Detail Recorded Client Recorded Date Recorded By Document 10/22/24 13:50 KW [id number] 10/22/24 14:00 KW 10/22/24 13:50 - Today's Visit Information Type of service Follow-up Visit (Physician/INSTRUCTOR OF NURSING ) Arrival Mode Wheelchair Accompanied by Patient Identification Verified (Name & Yes ) Height and Weight Body Mass Index (BMI) 47.8 BMI Classification Obese Vital Signs Temperature (97.8 F-99.1 F) 97.6 F L Temperature Source Temporal Pulse Rate (60-100) 95 Pulse Location Monitor Respiratory Rate (12-18) 18 Respiratory rate source Observation Oxygen Delivery Method Room Air Blood Pressure (90/60-120/80) 123/70 H Blood Pressure Mean (mm Hg) 87 Source Monitor Position Sitting Blood Pressure Location Left Arm History Since Last Visit- (Skip if this is Patient's initial visit) Have you changed medications since your No last visit? Any new allergies or adverse reactions No Had a fall/change in ADL's that may No increase risk of falls Signs or symptoms of abuse and/or No neglect since last visit Have you been in the hospital since your No last visit? Has dressing in place as prescribed Yes Has compression in place as prescribed N/A Has offloadiing in place as prescribed N/A Experienced any changes in pain level or No management Left Footwear Regular Shoe Right Footwear Regular Shoe Pain Scale: 0-10 Numeric Is Patient Pain Free? Yes WC - Nurse 1 - General Ulcer Measurement Start: 10/22/24 13:50 Freq: Status: Active Protocol: Activity Type Activity Date Activity User E-sign Co-sign Detail Recorded Client Recorded Date Recorded By Document 10/22/24 13:50 KW [id number] 10/22/24 14:00 KW 10/22/24 13:50 Wound Center Nurse 1 LEFT BUTTOCK CLUSTER -Current Size (cm) - Length 0 -Current Size (cm) - Width 0 -Current Size (cm) - Depth 0 -Total Square Cm 0 #1 Sacral -Current Size (cm) - Length 4 -Current Size (cm) - Width 4 -Current Size (cm) - Depth 4.7 -Total Square Cm 16 -Date of Last Picture (Recall this 10/22/24 field) -Exudate Amt Small -Exudate Type Serosanguineous -Wound Margin Distinct, Outline Attached -Granulation Amt Large (67-100%) -Granulation Quality Red -Texture (Connie-wound Skin Appearance) Assessed -Moisture (Connie-wound Skin Appearance) Assessed -Color (Connie-wound Skin Appearance) Assessed -Temperature (Connie-wound Skin No Abnormality Appearance) (Pt Warm) -Tenderness on Palpation (Connie-wound No Skin Appearance) -Ulcer Cleansing Rinsed/ Irrigated with Saline -Foul Odor after Cleansing No -Anesthetic Used 4% Lidocaine Solution MICAH - Nurse 2 - General Ulcer CM Notes Start: 10/22/24 13:50 Freq: Status: Active Protocol: Activity Type Activity Date Activity User E-sign Co-sign Detail Recorded Client Recorded Date Recorded By Document 10/22/24 14:47 JF [id number] 10/22/24 14:59 JF 10/22/24 14:47 Wound Center Nurse 2 LEFT BUTTOCK CLUSTER -Time 14:49 -Correct Patient Yes -Correct Side, Site, Position No -Correct Procedure No -Procedure Performed No -Tunneling No -Undermining/Tunneling No -Circular Undermining No -Wound/Ulcer Outcome Not Healed -Ulcer Cleansing Rinsed/ Irrigated with Saline -Foul Odor after Cleansing No -Bioengineered Tissue No -Bleeding Controlled with Pressure -Treatment Response Procedure Tolerated Well -Offloading No -Pressure Reduction Wheelchair cushion, Specialty bed #1 Sacral -Time 14:58 -Correct Patient Yes -Correct Side, Site, Position Yes -Correct Procedure Yes -Procedure Performed Yes -Type of Procedure Debridement -Clinical Debridement Muscle / Fascia -Tissue Removed Muscle,Fascia -Post Debridement (cm) - Length 4 -Post Debridement (cm) - Width 3 -Post Debridement (cm) - Depth 3 -Total Square (Post) (cm) 12 -Area of Debridement (cm) - Length 4 -Area of Debridement (cm) - Width 3 -Total Square (Area) (cm) 12 -Tunneling No -Undermining/Tunneling No -Circular Undermining No -Wound/Ulcer Outcome Not Healed -Ulcer Cleansing Rinsed/ Irrigated with Saline -Foul Odor after Cleansing No -Bioengineered Tissue No -Bleeding Controlled with Pressure -Treatment Response Procedure Tolerated Well -Offloading No -Pressure Reduction Wheelchair cushion, Specialty bed -Debridement - Muscle / Fascia, 1st Yes 20sq cm Pain Scale: 0-10 Numeric Is Patient Pain Free? Yes MICAH - Nurse 3 - General Ulcer D/C NN Start: 10/22/24 13:50 Freq: Status: Active Protocol: Activity Type Activity Date Activity User E-sign Co-sign Detail Recorded Client Recorded Date Recorded By Document 10/22/24 15:14 DL [id number] 10/22/24 15:16 DL 10/22/24 15:14 Wound Care Center Nurse 3 #1 Sacral -Ulcer Cleansing Rinsed/ Irrigated with Saline -Primary Dressing Applied Hysept -Other Dressing dakins -Primary Dressing Covered/Secured with Dry Gauze, Secured with Tape -Other Covering ABD -Hysept 1 Treatment Response Procedure Tolerated Well Pain Scale: 0-10 Numeric Is Patient Pain Free? Yes WC - Visit Discharge Discharge Condition Stable Ambulatory Status Walker, Wheelchair Transportation Private Auto Notes: Nutrition C/S today also. Facility Type Home Health Orders Sent Yes Assessment/Plan Assessment/Plan (1) Sacral decubitus ulcer, stage IV: CODE(S): L89.154 - Pressure ulcer of sacral region, stage 4 PLAN: Plan from 17 September 2024: persistent area of exposed bone. VAC helping wound granulate, but bone is colonized/chronically infected, likely not heal without OR debridement, antibiotics and flap closure. No indication for culture at this time as there is no acute infection and we are not closing the wound over the osteomyelitis, and this would subject the patient to 6 weeks of IV antibiotics without goal of actually curative treatment (Melo Tang, Clinical Infectious Diseases, Volume 68, Issue 2, 05 September 2018, Pages [phone],). I think the wound is not healing because of the infection of the bone at the base (the bone was not exposed for a while and then became exposed which is consistent with the diagnosis of chronic osteomyelitis). Continue to pursue pressure offloading mattress at home (but is yet to be delivered) Continue TIW vac changes once better tolerated, but we will use barrier cream to improve the skin in the periwound and do wet to moist dressings twice daily for now. Follow-up in 1 week I will discuss again with her primary care doctor and the anesthesia team appropriateness for general anesthesia as the patient declined any sedation-only procedures for debridement/reconstruction as she thinks it will hurt too much. We may not have the resources at [facility] to perform the debridement and reconstruction per anesthesia team, and therefore she may need referral to a tertiary center where they are willing to put her to sleep for the surgery. I will begin to coordinate this as this may have to be an option. Plan from 25 September 2024: Continue twice daily wet-to-dry dressings with the Dakin's. Continue with the acute pain physician. Continue with plan to get the pressure offloading bed. Will consider nutrition labs and nutrition consult at the next visit to check status. Follow-up with formal wear rental clerk and with anesthesia at [facility] to check for appropriateness of debridement/closure here versus at a tertiary center. Plan from 22 October 2024: Doing well overall. Continue WTD dressings with Dakins. Ordering nutrition labs now and will refer to tertiary center for potential debridement/reconstruction given comorbidities and discussion with anesthesia team.
[2024-10-22 21:27] LABS: AST(SGOT) 26 U/L (<=31); Alanine Aminotransfer ALT/SGPT < 5 U/L (<=34); Albumin, Serum 3.3 g/dL (3.4-4.8); Alkaline Phosphatase 211 U/L (35-104); BUN 21 mg/dL (4-19); Creatinine, Serum 1.64 mg/dL (0.70-1.20); EST Glomerular Filtration Rate 34 (>60); Estimated Creatinine Clearance 41.11 ml/min (50-250); Globulin 3.3 g/dL (2.2-4.2); Glucose 232 mg/dL (70-99); Protein, Total 6.6 g/dL (5.9-8.4)
[2024-10-22 21:57] LABS: Anion Gap 16 (5-15); Calcium,Total 9.1 mg/dL (7.6-11.0); Carbon Dioxide 19.8 mmol/L (21.0-32.0); Chloride 99 mmol/L (98-108); Potassium 4.1 mmol/L (3.3-5.1); Sodium Level 135 mmol/L (133-145)
[2024-10-23 03:33] LABS: Hemoglobin A1c 7.8 % (<=5.6)
[2024-10-24 12:08] LABS: Prealbumin 13 mg/dL (10-36)
--- NOTE | 2024-10-24 14:12 | WC ---
PHOTO 10/22/24 SACRAL
--- NOTE | 2024-10-24 14:15 | WC ---
PHOTO 10/22/24 LEFT BUTTOCK
== END 2024-11-19 23:59 ==
LOC: BFHLAB 13:38
PROVIDERS: PCP Family Medicine; Referring Provider Family Medicine; Visit Provider Surgery Plastic and Reconstructive Surgery
DX: L89.154 Pressure ulcer of sacral region, stage 4 (principal)
CPT/HCPCS: 11043; 36415; 80053; 83036; 84134; 85025; 97802

== ENCOUNTER 2025-05-13 13:42 | Outpatient (RCR) | payer MEDICARE, OTHER, SELFPAY ==
[2025-05-13 14:26] VITALS: BP 128/68; PULSE 67; RESP 16; TEMP 37.1
--- NOTE | 2025-05-14 10:17 | WC ---
PHOTO-SACRUM 05/13/25
--- NOTE | 2025-05-14 11:44 | PCM.WC.PN ---
History of Present Illness Date of Service: 05/13/25 Chief Complaint: Sacral ulcer History of Wound: Chief Complaint: Sacral ulcer History of Wound: Mitra Palacios is a 68-year-old female who presents to the wound center today for evaluation and management of a sacral decubitus ulcer. She is accompanied to her appointment today by her who helps with wound care. She reports that this decubitus ulcer has been present to some degree for 12 years. She has been on IV antibiotics for infection of this wound in 2012. She reports a history of surgical debridement and intervention in 2016 after which it improved but still had a small opening. Then more recently she states the opening has enlarged again. She was recently seen at [facility] in [place] for UTI with sepsis and this ulcer was evaluated at that time as well. Per review of the available reports, it appears they did an MRI bone scan which suggested chronic sacral osteomyelitis. She was discharged with home health care through [facility] and they have been packing the wound with Dakin's soaked Nu Gauze and covering with a Mepilex dressing. However, often after home health leaves they will remove the packing as the patient reports it is painful to sit with the packing in place and also it seems to fall out onto the Mepilex anyway. They do report a significant amount of drainage from the wound, but denies any appearance of stool or significant foul odor. She does spend essentially all of her time sitting in either wheelchair or a recliner. She reports that she cannot stand for more than a minute at a time due to knee pain. Likewise, she is able to ambulate very short distances to the bathroom but otherwise reports this is extremely limited due to knee pain as well. She does have a cushion for her wheelchair and reportedly her recliner as well. She does have a hospital bed but does not use this that she says the mattress is too hard and uncomfortable so she sleeps in her recliner. She is overweight with a BMI of 47.8; however, she reports she has intentionally lost about 100 pounds over the last 3 years. She is an insulin-dependent diabetic. She reports since her discharge from hospital her sugars have been on the lower side, but is unsure of her most recent A1c. She does not smoke. Her medical history is otherwise significant aortic stenosis status post TAVR March 2024, cardiomyopathy with HFrEF, type 2 diabetes with associated neuropathy, chronic kidney disease stage IV, hypertension, hyperlipidemia, FAISAL, chronic respiratory failure (on supplemental O2 4 L via NC). She takes daily aspirin but no other blood thinners. Subjective Subjective 07 May 2024: Patient here today as a referral from Dr. Amato. She reports that during her recent hospitalization for her TAVR procedure, she had her wound opened up more (sacral wound). She believes that there is exposed bone at the base of the wound. No fevers chills. She has not had any recent labs. Of note she has been nonambulatory for several years secondary to knee and hip pain, as well as back surgery in 2008. She has 4 L of oxygen at home continuously for her restrictive airway disease (she reports from just asthma). 15 May 2020: Patient got her MRI on Tuesday, 11 May 2024. She brought the disc in with her today. It is being transported to the radiology team and they are going to upload. Per the read there is localized osteomyelitis in the wound base, does not at appear to be extending to the superior portions of the sacrum. 21 May 2024: I talked the patient extensively today about surgery. She would not like to do any sedation and would like to go to sleep as the wound is painful. No change in wound since last seen 30 Jul 2024: Still at SNF but here for wound check. She was admitted acutely for UTI and then went to the low intensity rehab. Had a left gluteal/upper back abscess and is now s/p drain placement and then PICC line based on cultures. Still has drain and is getting it exchanged with IR. Wound is smaller, and bone culture from recent was negative for orangisms. 03 Sep 2024: Patient and report some issues with the VAC (losing suction and such). Discussed changing to wet to dry dressings as needed between VAC changes (good temporary solution until home health comes to replace). They were happy with this plan. 17 Sep 2024: Patient had recent issues with the wound VAC. Home health reported that there was some concern for infection underneath the VAC (drainage) so they recommended that she go to the emergency department. The emergency department physician from [place] called me after the patient had been transported by squad on , September 13, 2024. I asked the emergency room room physician to examine the wound by removing the wound VAC. He did so and was not concerned with infection. Wet-to-dry dressings were placed. He placed her on empiric antibiotics and discharged her. She is here for follow-up. No fevers or chills but increased pain in the location of the wound. Patient has a history of a right knee replacement with a periprosthetic fracture requiring complex reconstruction followed by subsequent left hip fracture in the mid to late s. These 3 major surgeries and reconstructions debilitated her significantly and she has not walked in over 10 years. 25 Sep 2024: Patient doing well today overall. Saw the chronic pain physician Dr. Menjivar this past week after we referred her. She thought this was very helpful. She has been doing well with her with the wet-to-dry dressings and are happy that they are no longer doing the VAC as this was cumbersome and leaks a lot. They are working to get the pressure offloading bed at home as they have had struggles with delivery, but reportedly the wound bed is on its way (was backordered). I spoke with her primary care physician Dr. Aaron Amato about surgical clearance for an OR debridement and possible flap closure. He believes that her heart has been optimized with the recent surgeries but would recommend clearance from the grinder operator automatic as well. The patient is lost 50 pounds in the past 6 months and is no longer requiring home oxygen, which is a significant improvement. Current encounter, 22 October 2024: Doing well overall with wound care. No recent admissions. Down another 15 lbs! Subjective Subjective Current encounter 13 May 2025 Patient here for follow-up. She was in facility for a while for care in the setting of fractures of the lower extremities and need for recovery. She is doing well at home now and has been decreasing significantly her body mass index and losing weight with diet. She is off of oxygen. She reports excellent wound care at home by her . No fevers chills or drainage from the sacral wound. He continues on a pressure offloading bed Objective Data Objective Data Vital Signs: Vital Signs Temp Pulse Resp BP 98.7 F 67 16 128/68 H 05/13/25 14:26 05/13/25 14:26 05/13/25 14:26 05/13/25 14:26 Charges/Coding Procedures Integumentary [id number]: [id number] Alycia musc/fascia 20 sq cm/< Physical Exam Narrative Sacral wound: Full-thickness sacral wound down fascia stage III. No exposed bone at the base today (has granulated). There is fibrinous exudate within the wound and biofilm. Wound is 3 x 3 and there is 3 cm depth and tunnels minimally. The periwound is healthy. Const oriented x3 General Appearance: cooperative Extremity Extremity Narrative: I examined her lower extremities She had 5 out of 5 plantarflexion and dorsiflexion, as well as 5 out of 5 knee extension and flexion. Debridement Note Debridement Note Wound debrided: Sacral wound Laterality: Not Applicable Wound Grade/Stage: Stage 3 Type of Debridement: Excisional debridement Anesthesia Used: 4% Lidocaine Solution Depth: to muscle (Fascia at the base of the wound and fibrinous exudate ) Percentage of wound debrided: 100 Instrument Used: 7mm curette, Forceps and - (scissors for sharp excision ) Severity: Fat Layer Exposed Amount of bleeding with debridement: Mild Bleeding Controlled with: Pressure Post-Debridement Measurements and Additional Note: Post-Debridement Measurements/Treatment WC - Nurse 1 - General Ulcer Assessment Start: 05/13/25 14:26 Freq: Status: Active Protocol: JIGAR Activity Type Activity Date Activity User E-sign Co-sign Detail Recorded Client Recorded Date Recorded By Document 05/13/25 14:26 [id number] 05/13/25 14:28 05/13/25 14:26 WC - Today's Visit Information Type of service Follow-up Visit (Physician/STENCIL INSPECTOR ) Arrival Mode Wheelchair Transfer Assistance Manual Patient Identification Verified (Name & Yes ) Vital Signs Temperature (97.8 F-99.1 F) 98.7 F Temperature Source Temporal Pulse Rate (60-100) 67 Pulse Location Monitor Respiratory Rate (12-18) 16 Respiratory rate source Observation Blood Pressure (90/60-120/80) 128/68 H Blood Pressure Mean (mm Hg) 88 Source Monitor Position Sitting Blood Pressure Location Left Forearm Pain Scale: 0-10 Numeric Is Patient Pain Free? Yes - Nurse 1 - General Ulcer Measurement Start: 05/13/25 14:26 Freq: Status: Active Protocol: Activity Type Activity Date Activity User E-sign Co-sign Detail Recorded Client Recorded Date Recorded By Document 05/13/25 14:26 [id number] 05/13/25 14:28 CP 05/13/25 14:26 Wound Center Nurse 1 #1 Sacral -Current Size (cm) - Length 3 -Current Size (cm) - Width 3.5 -Current Size (cm) - Depth 3 -Total Square Cm 10.5 -Date of Last Picture (Recall this 05/13/25 field) -Photo Taken Yes -Exudate Amt Medium -Exudate Type Sanguineous -Wound Margin Flat & Intact -Granulation Amt Large (67-100%) -Granulation Quality Red -Slough/Fibrin Yes -Necrosis Amt Small (1-33%) -Necrotic Tissue Type Adherent Slough -Texture (Connie-wound Skin Appearance) No Abnormality -Moisture (Connie-wound Skin Appearance) No Abnormality -Color (Connie-wound Skin Appearance) No Abnormality -Temperature (Connie-wound Skin No Abnormality Appearance) (Pt Warm) -Ulcer Cleansing Rinsed/ Irrigated with Saline -Foul Odor after Cleansing No -Anesthetic Used 5% Lidocaine Gel WC - Nurse 2 - General Ulcer CM Notes Start: 05/13/25 14:26 Freq: Status: Active Protocol: Activity Type Activity Date Activity User E-sign Co-sign Detail Recorded Client Recorded Date Recorded By Document 05/13/25 14:43 PERLITA [id number] 05/13/25 14:47 PERLITA 05/13/25 14:43 Wound Center Nurse 2 -Time 14:43 -Correct Patient Yes -Correct Side, Site, Position Yes -Correct Procedure Yes -Procedure Performed Yes -Type of Procedure Debridement -Clinical Debridement Muscle / Fascia -Tissue Removed Muscle -Post Debridement (cm) - Length 3 -Post Debridement (cm) - Width 3 -Post Debridement (cm) - Depth 3 -Total Square (Post) (cm) 9 -Area of Debridement (cm) - Length 3 -Area of Debridement (cm) - Width 3 -Total Square (Area) (cm) 9 -Tunneling No -Undermining/Tunneling No -Circular Undermining No -Wound/Ulcer Outcome Not Healed -Ulcer Cleansing Rinsed/ Irrigated with Saline -Foul Odor after Cleansing No -Bioengineered Tissue No -Bleeding Controlled with Pressure -Treatment Response Procedure Tolerated Well -Offloading No -Pressure Reduction Wheelchair cushion, Specialty bed -Debridement - Muscle / Fascia, 1st Yes 20sq cm Pain Scale: 0-10 Numeric Is Patient Pain Free? Yes WC - Nurse 3 - General Ulcer D/C NN Start: 05/13/25 14:26 Freq: Status: Active Protocol: Activity Type Activity Date Activity User E-sign Co-sign Detail Recorded Client Recorded Date Recorded By Document 05/13/25 15:03 ML [id number] 05/13/25 15:04 ML Edit Result 05/13/25 15:03 ML (1) [id number] 05/13/25 15:18 ML (1) #1 Sacral - Primary Dressing Applied Silvercel => Silicone Border => Foam 6x6,Silvercel - Silicone Border Foam 6x6 => 2 05/13/25 15:03 Wound Care Center Nurse 3 #1 Sacral -Ulcer Cleansing Rinsed/ Irrigated with Saline -Primary Dressing Applied Silicone Border Foam 6x6, Silvercel -Primary Dressing Covered/Secured with Dry Gauze, Secured with Tape -Silicone Border Foam 6x6 2 -Silvercel 2 Pain Scale: 0-10 Numeric Is Patient Pain Free? Yes Assessment/Plan Assessment/Plan (1) Stage 3 skin ulcer of sacral region: CODE(S): L98.429 - Non-pressure chronic ulcer of back with unspecified severity PLAN: Silver alginate dressings daily Continue pressure offloading protocol and pressure offloading bed I have ordered nutrition labs including CMP, CBC with differential, prealbumin, and hemoglobin A1c to check her overall nutrition status and wound healing potential. Follow-up in 3 weeks to discuss labs and consider next steps. I will coordinate with Dr. Amato her primary care physician regarding overall health and clearance for any future surgery/closure
== END 2025-05-21 23:59 | disposition home or self-care (01) ==
LOC: WC 13:42
PROVIDERS: PCP Family Medicine; Referring Provider Family Medicine; Visit Provider Surgery Plastic and Reconstructive Surgery
DX: E11.622 Type 2 diabetes mellitus with other skin ulcer (principal); L97.422 Non-pressure chronic ulcer of left heel and midfoot with fat layer exposed
CPT/HCPCS: 11043; 99214; G0463

== ENCOUNTER 2025-06-03 13:32 | Outpatient (RCR) | payer MEDICARE, OTHER, SELFPAY ==
[2025-06-03 13:53] VITALS: BP 133/59; PULSE 78; RESP 18; TEMP 36.1
--- NOTE | 2025-06-03 15:04 | PN.PCM_ITS ---
History of Present Illness Date of Service: 06/03/25 Chief Complaint: Sacral ulcer History of Wound: Chief Complaint: Sacral ulcer History of Wound: Mitra Palacios is a 68-year-old female who presents to the wound center today for evaluation and management of a sacral decubitus ulcer. She is accompanied to her appointment today by her who helps with wound care. She reports that this decubitus ulcer has been present to some degree for 12 years. She has been on IV antibiotics for infection of this wound in 2012. She reports a history of surgical debridement and intervention in 2016 after which it improved but still had a small opening. Then more recently she states the opening has enlarged again. She was recently seen at [facility] in [place] for UTI with sepsis and this ulcer was evaluated at that time as well. Per review of the available reports, it appears they did an MRI bone scan which suggested chronic sacral osteomyelitis. She was discharged with home health care through [facility] and they have been packing the wound with Dakin's soaked Nu Gauze and covering with a Mepilex dressing. However, often after home health leaves they will remove the packing as the patient reports it is painful to sit with the packing in place and also it seems to fall out onto the Mepilex anyway. They do report a significant amount of drainage from the wound, but denies any appearance of stool or significant foul odor. She does spend essentially all of her time sitting in either wheelchair or a recliner. She reports that she cannot stand for more than a minute at a time due to knee pain. Likewise, she is able to ambulate very short distances to the bathroom but otherwise reports this is extremely limited due to knee pain as well. She does have a cushion for her wheelchair and reportedly her recliner as well. She does have a hospital bed but does not use this that she says the mattress is too hard and uncomfortable so she sleeps in her recliner. She is overweight with a BMI of 47.8; however, she reports she has intentionally lost about 100 pounds over the last 3 years. She is an insulin-dependent diabetic. She reports since her discharge from hospital her sugars have been on the lower side, but is unsure of her most recent A1c. She does not smoke. Her medical history is otherwise significant aortic stenosis status post TAVR March 2024, cardiomyopathy with HFrEF, type 2 diabetes with associated neuropathy, chronic kidney disease stage IV, hypertension, hyperlipidemia, FAISAL, chronic respiratory failure (on supplemental O2 4 L via NC). She takes daily aspirin but no other blood thinners. Subjective Subjective 07 May 2024: Patient here today as a referral from Dr. Amato. She reports that during her recent hospitalization for her TAVR procedure, she had her wound opened up more (sacral wound). She believes that there is exposed bone at the base of the wound. No fevers chills. She has not had any recent labs. Of note she has been nonambulatory for several years secondary to knee and hip pain, as well as back surgery in 2008. She has 4 L of oxygen at home continuously for her restrictive airway disease (she reports from just asthma). 15 May 2020: Patient got her MRI on Tuesday, 11 May 2024. She brought the disc in with her today. It is being transported to the radiology team and they are going to upload. Per the read there is localized osteomyelitis in the wound base, does not at appear to be extending to the superior portions of the sacrum. 21 May 2024: I talked the patient extensively today about surgery. She would not like to do any sedation and would like to go to sleep as the wound is painful. No change in wound since last seen 30 Jul 2024: Still at SNF but here for wound check. She was admitted acutely for UTI and then went to the low intensity rehab. Had a left gluteal/upper back abscess and is now s/p drain placement and then PICC line based on cultures. Still has drain and is getting it exchanged with IR. Wound is smaller, and bone culture from recent was negative for orangisms. 03 Sep 2024: Patient and report some issues with the VAC (losing suction and such). Discussed changing to wet to dry dressings as needed between VAC changes (good temporary solution until home health comes to replace). They were happy with this plan. 17 Sep 2024: Patient had recent issues with the wound VAC. Home health reported that there was some concern for infection underneath the VAC (drainage) so they recommended that she go to the emergency department. The emergency department physician from [facility] called me after the patient had been transported by squad on , September 13, 2024. I asked the emergency room room physician to examine the wound by removing the wound VAC. He did so and was not concerned with infection. Wet-to-dry dressings were placed. He placed her on empiric antibiotics and discharged her. She is here for follow-up. No fevers or chills but increased pain in the location of the wound. Patient has a history of a right knee replacement with a periprosthetic fracture requiring complex reconstruction followed by subsequent left hip fracture in the mid to late s. These 3 major surgeries and reconstructions debilitated her significantly and she has not walked in over 10 years. 25 Sep 2024: Patient doing well today overall. Saw the chronic pain physician Dr. Menjivar this past week after we referred her. She thought this was very helpful. She has been doing well with her with the wet-to-dry dressings and are happy that they are no longer doing the VAC as this was cumbersome and leaks a lot. They are working to get the pressure offloading bed at home as they have had struggles with delivery, but reportedly the wound bed is on its way (was backordered). I spoke with her primary care physician Dr. Aaron Amato about surgical clearance for an OR debridement and possible flap closure. He believes that her heart has been optimized with the recent surgeries but would recommend clearance from the packer denture as well. The patient is lost 50 pounds in the past 6 months and is no longer requiring home oxygen, which is a significant improvement. Current encounter, 22 October 2024: Doing well overall with wound care. No recent admissions. Down another 15 lbs! Subjective Subjective 13 May 2025 Patient here for follow-up. She was in facility for a while for care in the setting of fractures of the lower extremities and need for recovery. She is doing well at home now and has been decreasing significantly her body mass index and losing weight with diet. She is off of oxygen. She reports excellent wound care at home by her . No fevers chills or drainage from the sacral wound. He continues on a pressure offloading bed Current encounter, 03 June 2025: I talked to the patient's primary care physician Dr. Amato about her labs, and I reviewed the labs with the patient and her today in clinic. Patient has improved kidney function now stage III. She has low albumin at 2.6 and low prealbumin at 10. Her A1c was 6.6. Dr. Dr. Amato about the appropriateness of protein supplementation in the setting of the stage III kidney disease, and he agreed that it is okay to supplement with high-protein diet and we will check kidney function again in a month. Patient and her were happy with this plan. They would like to work towards debridement and potential flap reconstruction of her wound now that her overall health is improving (no longer on any oxygen at baseline, and 180 pounds weight loss). Objective Data Objective Data Vital Signs: Vital Signs Temp Pulse Resp BP O2 Del Method 97 F L 78 18 133/59 H Room Air 06/03/25 13:53 06/03/25 13:53 06/03/25 13:53 06/03/25 13:53 06/03/25 13:53 Oxygen Delivery Method Room Air Charges/Coding Procedures Integumentary [id number]: [id number] Alycia subq tissue 20 sq cm/< Physical Exam Narrative Sacral wound: Full-thickness wound down to the sacral bone which at the superior aspect of the wound is exposed today. Stage IV Wound is 3 x 3.5 cm and is 3.7 cm deep No tunneling or undermining, the wound is wide open and clean. The periwound is healthy. Const oriented x3 General Appearance: cooperative Extremity Extremity Narrative: I examined her lower extremities She had 5 out of 5 plantarflexion and dorsiflexion, as well as 5 out of 5 knee extension and flexion. Debridement Note Debridement Note Wound debrided: Edges of the sacral wound near the skin Laterality: Not Applicable Wound Grade/Stage: Stage IV Type of Debridement: Excisional debridement Depth: in the subcutaneous layer Percentage of wound debrided: 100 Instrument Used: 7mm curette Tissue Removed: Fibrinous exudate in the subcutaneous plane Severity: Fat Layer Exposed Amount of bleeding with debridement: Mild Bleeding Controlled with: Pressure Post-Debridement Measurements and Additional Note: Post-Debridement Measurements/Treatment - Nurse 1 - General Ulcer Assessment Start: 06/03/25 13:53 Freq: Status: Active Protocol: JIGAR Activity Type Activity Date Activity User E-sign Co-sign Detail Recorded Client Recorded Date Recorded By Document 06/03/25 13:53 [place] [id number] 06/03/25 14:11 MT 06/03/25 13:53 - Today's Visit Information Type of service Follow-up Visit (Physician/[employer] ) Arrival Mode Walker, Wheelchair Accompanied by Patient Identification Verified (Name & Yes ) Safety Precautions Fall Prevention Finger Stick Blood Sugar(mg/dl) (if 80 indicated): Blood Sugar Stated by Patient Vital Signs Temperature (97.8 F-99.1 F) 97 F L Temperature Source Temporal Pulse Rate (60-100) 78 Pulse Location Monitor Respiratory Rate (12-18) 18 Respiratory rate source Monitor Oxygen Delivery Method Room Air Blood Pressure (90/60-120/80) 133/59 H Blood Pressure Mean (mm Hg) 83 Source Monitor Position Semi-Fowlers Blood Pressure Location Left Forearm History Since Last Visit- (Skip if this is Patient's initial visit) Has dressing in place as prescribed Yes Has compression in place as prescribed Yes Has offloadiing in place as prescribed Yes Experienced any changes in pain level or Yes management Left Footwear Regular Shoe Right Footwear Regular Shoe Pain Scale: 0-10 Numeric Is Patient Pain Free? Yes WC - Nurse 1 - General Ulcer Measurement Start: 06/03/25 13:53 Freq: Status: Active Protocol: Activity Type Activity Date Activity User E-sign Co-sign Detail Recorded Client Recorded Date Recorded By Document 06/03/25 13:53 [place] [id number] 06/03/25 14:11 [place] 06/03/25 13:53 Wound Center Nurse 1 #1 Sacral -Current Size (cm) - Length 4.0 -Current Size (cm) - Width 5.5 -Current Size (cm) - Depth 3.5 -Total Square Cm 22.00 -Date of Last Picture (Recall this 06/03/25 field) -Photo Taken Yes -Tunneling No -Undermining/Tunneling No -Circular Undermining No -Exudate Amt Large -Exudate Type Serosanguineous -Wound Margin Thickened & Rolled Under -Granulation Amt Medium (34-66%) -Granulation Quality Pale,[place] -Necrosis Amt Medium (34-66%) -Necrotic Tissue Type Adherent Slough -Texture (Connie-wound Skin Appearance) Assessed -Moisture (Connie-wound Skin Appearance) Assessed, Maceration -Color (Connie-wound Skin Appearance) Assessed -Temperature (Connie-wound Skin No Abnormality Appearance) (Pt Warm) -Tenderness on Palpation (Connie-wound No Skin Appearance) -Ulcer Cleansing Soap and Water -Foul Odor after Cleansing No -Anesthetic Used 5% Lidocaine Gel Lower Limb Edema Present NA WC - Nurse 2 - General Ulcer CM Notes Start: 06/03/25 13:53 Freq: Status: Active Protocol: Activity Type Activity Date Activity User E-sign Co-sign Detail Recorded Client Recorded Date Recorded By Document 06/03/25 14:37 PERLITA [id number] 06/03/25 14:42 PERLITA 06/03/25 14:37 Wound Center Nurse 2 #1 Sacral -Time 14:39 -Correct Patient Yes -Correct Side, Site, Position Yes -Correct Procedure Yes -Procedure Performed Yes -Type of Procedure Debridement -Clinical Debridement Subcutaneous -Tissue Removed Subcutaneous, Non-viable tissue -Post Debridement (cm) - Length 3 -Post Debridement (cm) - Width 3.5 -Post Debridement (cm) - Depth 3.7 -Total Square (Post) (cm) 10.5 -Area of Debridement (cm) - Length 3.0 -Area of Debridement (cm) - Width 3.5 -Total Square (Area) (cm) 10.50 -Tunneling No -Undermining/Tunneling No -Circular Undermining No -Wound/Ulcer Outcome Not Healed -Ulcer Cleansing Rinsed/ Irrigated with Saline -Foul Odor after Cleansing No -Bioengineered Tissue No -Bleeding Controlled with Pressure -Treatment Response Procedure Tolerated Well -Offloading No -Debridement - Subq, 1st 20sq cm Yes Pain Scale: 0-10 Numeric Is Patient Pain Free? Yes Assessment/Plan Assessment/Plan (1) Stage 3 skin ulcer of sacral region: CODE(S): L98.429 - Non-pressure chronic ulcer of back with unspecified severity PLAN: Silver alginate dressings daily Continue pressure offloading protocol and pressure offloading bed She was given protein supplementation (Erick) and will also work on protein supplementation at home (discussed appropriate intake levels) Follow-up in 1 month to review repeat labs (CMP, prealbumin) I talked to her about staged debridement in the operating room with irrigating wound VAC placement followed by flap reconstruction once we have definitive wound cultures. Once her nutrition is optimized with albumin and prealbumin higher, and A1c consistently below 6.5, then we can schedule her for surgery (once cleared by PCP). She is happy with this plan.
== END 2025-06-21 23:59 | disposition home or self-care (01) ==
LOC: WC 13:32
PROVIDERS: PCP Family Medicine; Referring Provider Family Medicine; Visit Provider Surgery Plastic and Reconstructive Surgery
DX: E11.622 Type 2 diabetes mellitus with other skin ulcer (principal); L97.422 Non-pressure chronic ulcer of left heel and midfoot with fat layer exposed
CPT/HCPCS: 11042

== ENCOUNTER → 2025-07-08 | Outpatient (CLI) | payer MEDICARE, OTHER, SELFPAY ==
[2025-07-08 18:16] LABS: Barbiturate Urine NEGATIVE (< 200 ng/mL); Benzodiazepine Urine NEGATIVE (< 200 ng/mL); PCP Urine NEGATIVE (< 25 ng/mL); THC Urine NEGATIVE (< 50 ng/mL)
== END | disposition home or self-care (01) ==
PROVIDERS: PCP Family Medicine; Referring Provider Anesthesiology; Visit Provider Anesthesiology
DX: M25.511 Pain in right shoulder (principal); F11.20 Opioid dependence, uncomplicated
CPT/HCPCS: 80307

== ENCOUNTER → 2025-07-16 | Outpatient (CLI) | payer MEDICARE, OTHER, SELFPAY ==
--- NOTE | 2025-07-16 13:05 | RAD_ITS ---
EXAM: XR Right Shoulder Complete, 2 or More Views CLINICAL INDICATION: R SHOULDER PAIN TECHNIQUE: Two or more views of the right shoulder. COMPARISON: No relevant prior studies available. FINDINGS: BONES/JOINTS: Small bony fragment of the greater tuberosity could be from injury of indeterminate age. No acute fracture. No dislocation. SOFT TISSUES: Unremarkable. RAD/Shoulder min 2 Views IMPRESSION: Small bony fragment of the greater tuberosity could be from injury of indetermi lala age. Reading Location: [id number]
== END | disposition home or self-care (01) ==
PROVIDERS: PCP Family Medicine; Referring Provider Anesthesiology; Visit Provider Anesthesiology
DX: M25.511 Pain in right shoulder (principal)
CPT/HCPCS: 73030